=== PATIENT | male | born 1940 | race African-American/Black ===

== ENCOUNTER 2016-11-17 10:20 | Outpatient (CLI) ==
[2015-01-10 17:02] VITALS: BMI 29.6
== END 2016-11-17 10:21 | disposition home or self-care (01) ==
LOC: LAB 10:20
PROVIDERS: ATTEND Internal Medicine
DX: S41.001A Unspecified open wound of right shoulder, initial encounter (principal)
CPT/HCPCS: 87070

== ENCOUNTER 2016-11-19 11:55 | Outpatient (CLI) ==
[2015-01-10 17:02] VITALS: BMI 29.6
== END 2016-11-19 11:56 | disposition home or self-care (01) ==
LOC: LAB 11:55
PROVIDERS: ATTEND General Practice
DX: L02.91 Cutaneous abscess, unspecified (principal)
CPT/HCPCS: 87070

== ENCOUNTER 2017-07-13 07:57 | Outpatient (CLI) ==
[2015-01-10 17:02] VITALS: BMI 29.6
--- NOTE | 2017-07-13 08:43 | CT ---
EXAM: CT chest without contrast HISTORY: Chest wall pain COMPARISON: Chest x-ray 05/17/2014 and multiple priors TECHNIQUE: Serial axial images of the chest were obtained from the lung apices to the upper abdomen without contrast. These were viewed in multiple planes. FINDINGS: The thyroid is normal. The visualized vessels are unremarkable without aneurysm or stenos is. The heart is normal in size without pericardial effusion. There are no pathologically enlarged mediastinal or hilar lymph nodes. Calcified subcarinal lymph node is present. There is no pneumothorax or pleural effusion. There is no consolidation, nodule or mass. The airways are patent. There is no abnormal ground-glass. The osseous structures are unremarkable with no rib abnormality or fracture. The soft tissues in the upper abdomen on this limited evaluation demonstrate a are large left renal lesion measuring 10.1 cm in diameter with Hounsfield units consistent with a cyst and a nonobstructing left renal calcificati on. Limited views of the upper abdomen demonstrate diverticulosis. IMPRESSION: 1. No acute cardiopulmonary process or osseous abnormality to account for patient's symptoms. 2. Large left renal cyst with associated nonobstructing calcification. 3. Diverticulosis without diverticulitis.
== END 2017-07-13 07:58 | disposition home or self-care (01) ==
LOC: RAD 07:57
PROVIDERS: ATTEND Internal Medicine
DX: R07.89 Other chest pain (principal)

== ENCOUNTER 2017-07-16 07:18 | Inpatient (IN) | payer OTHER ==
[2017-07-16 07:25] VITALS: BMI 29.0
[2017-07-16] MEDS ORDERED: SODIUM CHLORIDE 1,000 ML IV STA (07:37)
--- NOTE | 2017-07-16 09:26 | CT ---
EXAM: CT chest without contrast. HISTORY: Chest pain. Difficulty breathing. COMPARISON: 07/13/2017. TECHNIQUE: Multiple axial images of the chest were obtained without intravenous contrast. Images we re reformatted in the sagittal and coronal planes. FINDINGS: Heart size is normal. There is no pericardial effusion. Atherosclerotic calcifications p resent. Evaluation for lymphadenopathy is limited by lack of intravenous contrast. Nonenlarged medi astinal lymph nodes present. Calcified subcarinal lymph nodes are present. No consolidation, pleural effusion or pneumothorax detected. Limited images of the upper abdomen demonstrate a left nephrolithiasis and large left renal cyst as w ell as diverticulosis and hepatic steatosis. Degenerative changes present in the spine which Schmorl 's node formation in the lumbar spine. Since the prior study, there is no significant interval change. IMPRESSION: No acute cardiopulmonary process.
--- NOTE | 2017-07-16 09:41 | ED.PDOC ---
General ED Provider: Dr. PATIENCE PULIDO Chief Complaint: Chest Wall Injury/Pain Stated Complaint: chest pain Time Seen by Physician: 07:20 (seen with nelly on arrival CT CHEST FROM PRIOR EVALUARION EXAMINED ) Mode of Arrival: Wheelchair Information Source: Patient Exam Limitations: No limitations Primary Care Provider: MIGUEL GARAY Nursing and Triage Documentation Reviewed and Agree: Yes (NO RECENT TRAUMA) Reviewed sepsis parameters & appropriate labs ordered?: Yes System Inflammatory Response Syndrome: Not Applicable Sepsis Protocol: For patient's 13 years and over: Temp is 96.8 and below OR 101 and greater Pulse >90 BPM Resp >20/minute Acutely Altered Mental Status Are patient's symptoms suggestive of a new infection, such as: -Pneumonia -Skin, Soft Tissue -Endocarditis -UTI -Bone, Joint Infection -Implantable Device -Acute Abdominal Infection -Wound Infection -Meningitis -Blood Stream Catheter Infection -Unknown System Inflammatory Response Syndrome: Not Applicable Cardiovascular Complaint Exam - Chest Pain Complaint/Exam Onset: Gradual Duration: 1 WEEK Symptoms Are: Still present Timing: Constant Initial Severity: Moderate Current Severity: Mild Location: Reports: Midsternal Pain Radiates: Reports: None Character: Reports: Dull Aggravating: Reports: None Alleviating: Reports: None Associated Signs and Symptoms: Reports: Cough. Denies: Diaphoresis, Nausea, Vomiting, Fever, Palpitations, Hemoptysis, Back pain, Abdominal pain, Dizziness , Short of air, Calf pain, Calf swelling Related History: Reports: Similar episode Related Surgical History: Reports: None History of Healthcare-Acquired Pneumonia: Reports: No AMI/ACS Risk Factors: Reports: Hypertension TAD Risk Factors: Reports: Hypertension Pulmonary Embolism Risk Factors: Reports: None Prior Care for this Complaint: No Recent Stress Test: No Recent Echo/LV Function: No JVD Present: No Subcutaneous Emphysema Present: No Diminshed Breath Sounds: No Reproducible Chest Wall Pain: No Bilateral Pulses Present: No Unequal Pulses Noted: No If Risk Factors for AMI/ACS Consider: EKG, Cardiac Enzymes Differential Diagnoses: ACS, Stable Angina, Unstable Angina, GI Diseasae, Lower Resp. Infection Quality Indicators For Acute PR or Cardiac Chest Pain: EKG in 10min. Review of Systems - Review Of Systems Constitutional: Reports: No symptoms Eyes: Reports: No symptoms Ears, Nose, Mouth, Throat: Reports: No symptoms Respiratory: Reports: No symptoms Cardiac: Reports: Chest pain GI: Reports: No symptoms : Reports: No symptoms Musculoskeletal: Reports: No symptoms Skin: Reports: No symptoms Neurological: Reports: No symptoms Endocrine: Reports: No symptoms Hematologic/Lymphatic: Reports: No symptoms All Other Systems: Reviewed and Negative Past Medical History - Past Medical History Previously Healthy: Yes Endocrine: Reports: Dyslipidemia Cardiovascular: Reports: Hypertension Respiratory: Reports: None Hematological: Reports: None Gastrointestinal: Reports: None, Diverticulitis Genitourinary: Reports: None Neuro/Psych: Reports: None Musculoskeletal: Reports: None Cancer: Reports: None - Surgical History General Surgical History: Reports: Cholecystectomy - Family History Family History: Reports: Unknown - Social History Smoking Status: Never smoker Hx Substance Use: No Alcohol Screening: None Physical Exam - Physical Exam Appearance: Well-appearing, No pain distress, Well-nourished Eyes: SHAILESH, EOMI, Conjunctiva clear ENT: Ears normal, Nose normal, Oropharynx normal Respiratory: Airway patent, Breath sounds clear, Breath sounds equal, Respirations nonlabored Cardiovascular: RRR, Pulses normal, No rub, No murmur GI/: Soft, Nontender, No masses, Bowel sounds normal, No Organomegaly Musculoskeletal: Normal strength, ROM intact, No edema, No calf tenderness Skin: Warm, Dry, Normal color Neurological: Sensation intact, Motor intact, Reflexes intact, Cranial nerves intact, Alert, Oriented Psychiatric: Affect appropriate, Mood appropriate Re-Evaluation - Re-Evaluation Time of Re-Evaluation: 09:38 (seen with nelly labs/EKG discussed ) Status: Unchanged Vital Signs Stable: Yes Pain Level: 3 Appearance: NAD Lungs: Clear Skin: Warm and Dry Neuro: Alert and Oriented X3 CV: RRR Physician Notification - Case Discussed Physician Notified: PMD Time of Notification: 10:00 (ALL DATA DISCUSSED ADVISED ADMISSION ) Admit To: Inpatient Critical Care Note - Critical Care Note Total Time (mins): 0 Course - Course Hematology/Chemistry: 07/16/17 07:36 07/16/17 07:55 Orders, Labs, Meds: Lab Review 07/16/17 07/16/17 07/16/17 07:36 07:55 07:55 WBC 7.64 RBC 4.60 L Hgb 14.2 Hct 39.6 L MCV 86.1 MCH 30.9 MCHC 35.9 H RDW Coeff of Bossman 12.9 Plt Count 182 Immature Gran % (Auto) 0.3 Neut % (Auto) 44.2 Lymph % (Auto) 46.9 Banks % (Auto) 7.6 Eos % (Auto) 0.9 Baso % (Auto) 0.1 Immature Gran # (Auto) 0.0 Neut # (Auto) 3.4 Lymph # (Auto) 3.6 H Banks # (Auto) 0.6 Eos # (Auto) 0.1 Baso # (Auto) 0.0 PT 10.3 INR 1.01 APTT 23.2 L Puncture Site O2 Saturation ABG pH ABG pCO2 ABG pO2 ABG HCO3 ABG Total CO2 ABG Base Excess Diaz Test FiO2 % Sodium 143 Potassium 3.2 L Chloride 108 H Carbon Dioxide 21 L Anion Gap 17.2 BUN 21 H Creatinine 1.58 H Estimated GFR (MDRD) 52.00 BUN/Creatinine Ratio 13.29 Glucose 91 Calcium 9.1 Total Bilirubin 0.8 AST 22 ALT 30 Alkaline Phosphatase 72 Total Creatine Kinase 95 Troponin I 0.0190 Total Protein 7.3 Albumin 3.9 Globulin 3.4 Albumin/Globulin Ratio 1.15 Procalcitonin Urine Color Urine Clarity Urine pH Ur Specific Perry Urine Protein Urine Glucose (UA) Urine Ketones Urine Blood Urine Nitrite Urine Bilirubin Urine Urobilinogen Ur Leukocyte Esterase Urine Microscopic WBC Ur Squamous Epith Cells Influ A Molecular Assay Influ B Molecular Assay 07/16/17 07/16/17 07/16/17 07:55 08:00 08:15 WBC RBC Hgb Hct MCV MCH MCHC RDW Coeff of Bossman Plt Count Immature Gran % (Auto) Neut % (Auto) Lymph % (Auto) Banks % (Auto) Eos % (Auto) Baso % (Auto) Immature Gran # (Auto) Neut # (Auto) Lymph # (Auto) Banks # (Auto) Eos # (Auto) Baso # (Auto) PT INR APTT Puncture Site R rad O2 Saturation 97.0 ABG pH 7.490 H ABG pCO2 29.3 L ABG pO2 82.0 L ABG HCO3 22.3 ABG Total CO2 23 ABG Base Excess -1 Diaz Test + FiO2 % 21.0 Sodium Potassium Chloride Carbon Dioxide Anion Gap BUN Creatinine Estimated GFR (MDRD) BUN/Creatinine Ratio Glucose Calcium Total Bilirubin AST ALT Alkaline Phosphatase Total Creatine Kinase Troponin I Total Protein Albumin Globulin Albumin/Globulin Ratio Procalcitonin 0.07 Urine Color Urine Clarity Urine pH Ur Specific Perry Urine Protein Urine Glucose (UA) Urine Ketones Urine Blood Urine Nitrite Urine Bilirubin Urine Urobilinogen Ur Leukocyte Esterase Urine Microscopic WBC Ur Squamous Epith Cells Influ A Molecular Assay Negative by naat Influ B Molecular Assay Negative by naat 07/16/17 08:50 WBC RBC Hgb Hct MCV MCH MCHC RDW Coeff of Boss[place] Plt Count Immature Gran % (Auto) Neut % (Auto) Lymph % (Auto) Banks % (Auto) Eos % (Auto) Baso % (Auto) Immature Gran # (Auto) Neut # (Auto) Lymph # (Auto) Banks # (Auto) Eos # (Auto) Baso # (Auto) PT INR APTT Puncture Site O2 Saturation ABG pH ABG pCO2 ABG pO2 ABG HCO3 ABG Total CO2 ABG Base Excess Diaz Test FiO2 % Sodium Potassium Chloride Carbon Dioxide Anion Gap BUN Creatinine Estimated GFR (MDRD) BUN/Creatinine Ratio Glucose Calcium Total Bilirubin AST ALT Alkaline Phosphatase Total Creatine Kinase Troponin I Total Protein Albumin Globulin Albumin/Globulin Ratio Procalcitonin Urine Color Yellow Urine Clarity Clear Urine pH 6.0 Ur Specific Perry 1.015 Urine Protein 1+ Urine Glucose (UA) Negative Urine Ketones Negative Urine Blood Negative Urine Nitrite Negative Urine Bilirubin Negative Urine Urobilinogen 0.2 Ur Leukocyte Esterase Negative Urine Microscopic WBC 0-2 Ur Squamous Epith Cells 0-2 Influ A Molecular Assay Influ B Molecular Assay Orders Category Date Time Status ABG DRAW REQUEST Stat CARDIO 07/16/17 07:41 Completed EKG-(ED ONLY) Stat CARDIO 07/16/17 07:36 Completed EKG-(ED ONLY) Stat CARDIO 07/16/17 09:37 Ordered NPO REMINDER: IMAGING ONCE CARE 07/16/17 07:36 Completed ED IV/MEDIPORT/POWERPORT .ONCE EMERGENCY 07/16/17 07:37 Active ABG Stat LAB 07/16/17 08:00 Completed BLOOD CULTURE (ED ONLY) Stat LAB 07/16/17 07:55 Received CBC W/ AUTO DIFF Stat LAB 07/16/17 07:36 Completed COMPREHENSIVE METABOLIC PANEL Stat LAB 07/16/17 07:55 Completed CREATINE KINASE Stat LAB 07/16/17 07:55 Completed FLU A/B MOLECULAR Stat LAB 07/16/17 08:15 Completed MOLECULAR GROUP A STREP Stat LAB 07/16/17 08:15 Completed PARTIAL THROMBOPLASTIN TIME Stat LAB 07/16/17 07:55 Completed PROCALCITONIN Stat LAB 07/16/17 07:55 Completed PT WITH INR Stat LAB 07/16/17 07:55 Completed TROPONIN I Stat LAB 07/16/17 07:55 Completed URINALYSIS C & S IF INDICATED Stat LAB 07/16/17 08:50 Completed 0.9 % Sodium Chloride [Saline Flush] MEDS 07/16/17 07:37 Active 1 syr IVF PRN PRN Sodium Chloride 0.9% [Sodium Chloride] 1,000 ml MEDS 07/16/17 07:37 Active IV 100 mls/hr CT CHEST W/O CONTRAST Stat RADS 07/16/17 07:39 Completed Medications Generic Name Dose Route Start Last Admin Trade Name Freq PRN Reason Stop Dose Admin Sodium Chloride 1,000 mls @ 100 mls/hr 07/16/17 07:37 Sodium Chloride IV 07/16/17 17:36 .Q10H STA Sodium Chloride 1 syr 07/16/17 07:37 Saline Flush IVF PRN PRN To flush IV Vital Signs: Temp Pulse Resp BP Pulse Ox 07/16/17 07:19 97.1 F L 80 20 127/85 98 MADDISON Risk Score MADDISON Risk Score: Risk Score Odds of by 30D 0 0.1 (0.1-0.2) 1 0.3 (0.2-0.3) 2 0.4 (0.3-0.5) 3 0.7 (0.6-0.9) 4 1.2 (1.0-1.5) 5 2.2 (1.9-2.6) 6 3.0 (2.5-3.6) 7 4.8 (3.8-6.1) Departure - Departure Time of Disposition: 09:39 (NO ACUTE EVENT WHILE AT E/D) Disposition: ADMITTED INPATIENT Discharge Problem: Chest pain Qualifiers: Chest pain type: unspecified Qualified Code(s): R07.9 - Chest pain, unspecified Instructions: Chest Pain (DC) Condition: Good Pt referred to PMD for follow-up: Yes IPMP verified?: No Additional Instructions: Please call your Family Physician as soon as possible to schedule a follow-up appointment. Allergies/Adverse Reactions: Allergies Iodinated Contrast- Oral and IV Dye [Iodinated Contrast Media - IV Dye] Adverse Reaction (Verified 07/16/17 07:24) Home Medications: Ambulatory Orders Amlodipine Besylate [Norvasc] 5 mg PO BID 11/27/12 Albuterol Sulfate [Proventil Hfa] 6.7 gm IH Q6HR PRN 05/17/14 Rosuvastatin Calcium [Crestor] 10 mg PO BEDTIME 01/10/15 Metformin HCl 500 mg PO BID 11/17/16 Disposition Discussed With: Patient
[2017-07-16] MEDS ORDERED: PROAIR HFA IH PRN (09:46)
[2017-07-16] MEDS ORDERED: MORPHINE 2 MG/ML SYRINGE IVP STA (10:22)
[2017-07-16] MEDS ORDERED: NORVASC PO STA (11:36)
[2017-07-16] MEDS ORDERED: GLUCOPHAGE PO ONE (11:36)
[2017-07-16] MEDS ORDERED: DECADRON 4 MG/ML SDV IM STA (11:40)
[2017-07-16] MEDS: K-DUR PO SCH ×2 (12:04→16:45)
[2017-07-16] MEDS: TORADOL IVP SCH ×2 (13:57→21:24)
[2017-07-16] MEDS: GLUCOPHAGE PO SCH (16:44)
[2017-07-16] MEDS ORDERED: GLUCOPHAGE PO SCH (17:30)
[2017-07-16] MEDS ORDERED: SODIUM CHLORIDE 1,000 ML IV SCH (19:00)
[2017-07-16] MEDS: NORVASC PO SCH (20:11)
[2017-07-16] MEDS: CRESTOR PO SCH (20:11)
[2017-07-17] MEDS: TORADOL IVP SCH ×3 (04:25→22:45)
[2017-07-17] MEDS: GLUCOPHAGE PO SCH ×2 (08:14→17:26)
[2017-07-17] MEDS: NORVASC PO SCH ×2 (09:15→22:06)
[2017-07-17] MEDS: K-DUR PO SCH ×2 (09:16→17:25)
--- NOTE | 2017-07-17 13:48 | STRESSMOD ---
Ordering Physician: MIGUEL GARAY Date of Test: 07/17/2017 Medical History: CHEST PAIN, HYPERTENSION Current Medications: CRESTOR, METFORMIN, NORVASC, PROVENTIL HFA, TORADOL, K-DUR Physical Findings: S1, S2, NO S3, NO MURMUR Resting EKG: SINUS RHYTHM, LEFT VENTRICULAR HYPERTROPHY Target Heart Rate: 120 Max Heart Rate: 142 S-T SEGMENT STAGE MPH/GRADE HEART RATE BPM BLOOD PRESSURE mmhg RHYTHM 0 +/- ELEVATION DEPRESSION SYMPTOMS,COMMENTS At Rest 70 152/96 SR X NONE 1 1.7/0% 102 164/106 SR X NONE 2 1.7/5% 156/106 SR 3 1.7/10% 4 2.5/12% 5 3.4/14% Immediately after 120 132/94 SR X FATIGUE Total Time: 6:33 Maximum Heart Rate Reached: 120 Reason for Termination: FATIGUE 4 Minutes Post Exercise: HR: 80BPM BP: 132/94 SR +/- NONE ____ INTERPRETATION: 98% OXYGEN SATURATION WITH EXERCISE ON ROOM AIR 1. TEST NEGATIVE FOR ISCHEMIC ST-T WAVE CHANGES 2. FEW PVC'S AT REST- LESS FREQUENT WITH EXERCISE 3. HYPERTENSION AT REST AND WITH EXERCISE 4. NO CHEST PAIN OR CHEST DISCOMFORT 5. NORMAL LEFT VENTRICULAR CONTRACTILITY RESTING AND WITH EXERCISE MTDD
--- NOTE | 2017-07-17 14:26 | ECHOSTRESS ---
Date of Exam: 07/17/2017 Ordering Physician: MIGUEL GARAY Reason for Echo: CHEST PAIN, STRESS TEST-NO ISCHEMIA M-Mode Normal Adult Results LV Dimensions Normal Adult Results AoV Opening excursions >1.6 LVEDD-base- 3.5-5.8 Ao root dimensions 2.0-3.7 LVESD-base- 3.1-4.6 L. Atrium dimensions 1.9-3.8 Post. Wall thickness 0.8-1.1 IV septum (thickness) 0.7-1.2 Post. Wall excursion 0.72-1.3 Septal motion Systolic motion R. Ventricular cavity 1.5-2.0 LVEF 60% Paradoxical septal wall motion 2-D: NORMAL LEFT VENTRICULAR CONTRACTILITY-RESTING AND POST EXERCISE M-MODE: MV: AV: TV: PV: CHAMBER SIZE: WALL MOTION: NORMAL LEFT VENTRICULAR CONTRACTILITY-RESTING AND POST EXERCISE PERICARDIUM: INTERPRETATION: 1. NORMAL LEFT VENTRICULAR CONTRACTILITY-RESTING AND POST EXERCISE MTDD
[2017-07-17] MEDS: CRESTOR PO SCH (22:06)
[2017-07-18 05:14] VITALS: BP 142/83; TEMP 98.3
[2017-07-18] MEDS: TORADOL IVP SCH (05:57)
[2017-07-18] MEDS: K-DUR PO SCH (08:59)
[2017-07-18] MEDS: NORVASC PO SCH (08:59)
[2017-07-18] MEDS: GLUCOPHAGE PO SCH (09:00)
--- NOTE | 2017-07-20 13:35 | ECHO2D ---
Date of Exam: 07/17/17 Ordering Physician: DR. MIGUEL GARAY Room #: [id number] Reason for Echo: CHEST PAIN M-Mode Normal Adult Results LV Dimensions Normal Adult Results AoV Opening excursions >1.6 >1.6 LVEDD-base- 3.5-5.8 5.6 Ao root dimensions 2.0-3.7 3.8 LVESD-base- 3.1-4.6 L. Atrium dimensions 1.9-3.8 4.0 Post. Wall thickness 0.8-1.1 1.2 IV septum (thickness) 0.7-1.2 1.1 Post. Wall excursion 0.72-1.3 NORMAL Septal motion NORMAL Systolic motion R. Ventricular cavity 1.5-2.0 NORMAL LVEF 60% 61% Paradoxical septal wall motion NORMAL 2-D : NORMAL VALVES, BORDERLINE LEFT ATRIAL AND LEFT VENTRICLE CAVITIES, NO EFFUSION, NO THROMBUS M-MODE: MV: E WAVE GREATER THAN A WAVE AV: NORMAL TV: NORMAL PV: NORMAL CHAMBER SIZE: ENLARGED LEFT ATRIAL CAVITY WALL MOTION: NORMAL PERICARDIUM: NORMAL INTERPRETATION: 1. DIASTOLIC DYSFUNCTION 2. LEFT VENTRICULAR HYPERTROPHY BORDERLINE 3. BORDERLINE LEFT ATRIAL AND LEFT VENTRICLE CAVITIES 4. NORMAL LEFT VENTRICULAR CONTRACTILITY--EJECTION FRACTION 60% MTDD
--- NOTE | 2017-07-21 13:52 | DS ---
DATE OF SERVICE: 07/18/17 FINAL DIAGNOSIS: 1. CHEST PAIN, NONCARDIAC 2. HYPERTENSION 3. DYSLIPIDEMIA 4. GENERALIZED ANXIETY DISORDER 5. CHRONIC KIDNEY DISEASE 6. DYSLIPIDEMIA 7. DIABETES MELLITUS DISCHARGE INSTRUCTIONS: Followup appointment with Dr. Blackwell on 07/24/17 at 11:[address] Blackwell also wants to see you on Thursday or Thursday when you bring your in for her followup appointment. Return to ER if any further issues. MEDICATIONS AT DISCHARGE: Amlodipine 5 mg twice a day Proventil Hfa two puffs four times a day as needed Rosuvastatin 10 mg p.o. daily Metformin 500 mg twice a day Baby aspirin one a day NEW PRESCRIPTIONS: None DIET INSTRUCTIONS: Heart Healthy ACTIVITY: As tolerated. SMOKING: Never smoked DISEASE SPECIFIC EDUCATION: Diagnoses Followup appointment Medications Counseled about stress reduction Diet HOSPITAL COURSE: 76-year-old black male hospitalized with chest pain. The patient's chest pain seems to be noncardiac but has multiple risk factors. The patient was worked up with echo which showed LVH, normal LV contractility. Stress echo was negative for ischemia. The patient was up and about. He has a lot of anxiety related to family problems. Daughter has moved in with him and the son, who lives in [place] , has a lot of other family issues along with his who is now in the hospital, has multiple medical problems. The patient was counseled about it but declined to take any antidepressant or antianxiety medication. He is condition is stable. At the time of discharge, he has decided to deal with it by himself and his ideas are normal. His thought process is normal. No suicidal or homicidal tendency. CONDITION AT TIME OF DISCHARGE: Stable. LAB TESTS: Hemoglobin 13.3, hematocrit 38, WBC 7,000, normal differential, creatinine 1.3, BUN 21, potassium 4, GFR 64 cc/min. TIME SPENT: More than 60 minutes. BARTOLOMED
--- NOTE | 2017-07-21 13:53 | PN ---
CODING FOR BILLNIG 07/16/17 LEVEL 5 07/17/17 INTERMEDIATE 07/18/17 DISCHARGE MTDD
--- NOTE | 2017-07-27 12:57 | HP ---
DATE OF SERVICE: 07/16/17 REASON FOR HOSPITALIZATION: Chest pain. HISTORY OF PRESENT ILLNESS: 76-year-old black male came to the emergency room with chest pain. According to him, he had sustained some pulling of the muscle by the chest while trying to pull his while she was sick. Chest pain is substernal, right-sided. He says it feels like having bubbles or balls like golf balls moving, gas type of feeling so goes to the back. Mostly it is confined to the right side of the chest, more than the left side. No associated sweating or radiation of the pain to any other part but had mild shortness of breath lately. PAST MEDICAL HISTORY: Hypertension Diabetes mellitus Dyslipidemia Chronic kidney disease PAST SURGICAL HISTORY: Cholecystectomy Laser surgery, left eye REVIEW OF SYSTEMS: CONSTITUTIONAL: Fatigue; no weakness. No night sweats. No malaise, lethargy. No fever or chills. HEENT: Eyes: No visual changes. No eye pain. No eye discharge. ENT: No runny nose. No epistaxis. No sinus pain. No sore throat. No odynophagia. No ear pain. No congestion. RESPIRATORY: No cough, no congestion. No hemoptysis. No shortness of breath. No PND, no orthopnea. CARDIOVASCULAR: No angina symptoms. No CHF symptoms. Chest pain mostly seems like superficial chest wall pain, air bubbles on the right side of the chest and through to the back. Also stated sweating, maybe mild shortness of breath lately. GASTROINTESTINAL: No abdominal pain. No nausea or vomiting. No diarrhea or constipation. No hematemesis. No hematochezia. GENITOURINARY: No urgency. No frequency. No dysuria. No hematuria. No obstructive symptoms. No discharge. No pain. No significant abnormal bleeding. MUSCULOSKELETAL: No musculoskeletal pain. No joint swelling. No arthritis. NEUROLOGICAL: No headache. No neck pain. No syncope. No seizures. No dizziness. PSYCHIATRIC: Not anxious. No depression. No suicidal thoughts. No homicidal thoughts. SKIN: No rash. No lesions. No wounds. ENDOCRINE: No unexplained weight loss. No weight gain. HEMATOLOGIC/LYMPHATIC: No anemia. No purpura. No petechiae. No prolonged or excessive bleeding. No palpable lymph nodes. PERSONAL/FAMILY/SOCIAL HISTORY: The patient is , lives with the . Nonsmoker. No alcohol abuse. He does all activities of daily living. MEDICATIONS: Amlodipine 5 mg p.o. twice a day Albuterol/Proventil Hfa two puffs three times a day Rosuvastatin 10 mg p.o. daily Metformin 500 mg p.o. twice a day ALLERGIES: IODINATED CONTRAST DYE PHYSICAL EXAMINATION: GENERAL: The patient is oriented to time, place and person. VITAL SIGNS: Temperature 98.2, pulse 70, respiratory rate 16, BP 128/76, pulse ox 98%. HEENT: Head normocephalic, atraumatic. Eyes: Extraocular muscles are intact. Pupils are equal, round and reactive to light and accommodation. Ears: No lesions. Nose appeared normal. Throat: No exudate or erythema. NECK: Supple. No JVD, no carotid bruit. No lymphadenopathy or thyromegaly. LUNGS: Clear to auscultation. Percussion note normal. Chest symmetrical. HEART: S1, S2, no S3. No murmurs. No cyanosis or clubbing. No ascites. Pulses: Dorsalis pedis and posterior tibial pulses +1 to +2 both sides. ABDOMEN: Soft. Nontender. Bowel sounds active. No CVA tenderness. No mass felt. EXTREMITIES: No edema. Full range of motion of all extremities, equal. NEUROLOGIC: No focal deficit. Cranial nerves II through XII are grossly intact. No headache, no double vision or headache. SKIN: Not dry. Intact. Turgor - normal. LYMPHATIC: No palpable lymph nodes/no lymphedema. MUSCULOSKELETAL: Normal joints with no swelling. Muscle tone is normal. LABS: Hemoglobin 14.2, hematocrit 39, WBC 7,600, normal differential. Creatinine 1.5, BUN 21, potassium 3.2. 1+ protein. Influenza A and B negative. Arterial blood gases p02 82, pc02 29, pH 7.49 with 97% saturation on room air. Potassium 3.2. Hemoglobin 14, hematocrit 39, WBC 7,600, normal differential. ASSESSMENT: 1. CHEST PAIN, SEEMS TO BE NONCARDIAC, MULTIPLE RISK FACTORS FOR CORONARY ARTERY DISEASE LIKE FAMILY HISTORY OF HEART DISEASE. THE FATHER OF [place]. 2. DYSLIPIDEMIA 3. HYPERTENSION 4. DIABETES MELLITUS 5. BMI 29 6. SEDENTARY LIFESTYLE 7. CHRONIC KIDNEY DISEASE PLAN: 1. Continue all home medications 2. Telemetry 3. Echo to be done in the morning 4. Stress echo following echocardiogram 5. Cardiac markers so far are negative. EKG - sinus rhythm, no acute changes, LVH noted. CONDITION: Stable TIME SPENT: More than 70 minutes. MTDD
--- NOTE | 2017-07-27 13:08 | PN ---
DATE OF SERVICE: 07/17/17 SUBJECTIVE: 76-year-old black male hospitalized with chest pain. REVIEW OF SYSTEMS: CONSTITUTIONAL: No night sweats. No fatigue, malaise, lethargy. No fever or chills. HEENT: Eyes: No visual changes. No eye pain. No eye discharge. ENT: No runny nose. No epistaxis. No sinus pain. No sore throat. No odynophagia. No congestion. RESPIRATORY: No cough, no congestion. No hemoptysis. No shortness of breath. CARDIOVASCULAR: No angina symptoms. No CHF symptoms. Mild chest pain. No palpitations. No orthopnea. GASTROINTESTINAL: No abdominal pain. No nausea or vomiting. No diarrhea or constipation. No hematemesis. No hematochezia. GENITOURINARY: No urgency. No frequency. No dysuria. No hematuria. No obstructive symptoms. No discharge. No pain. No significant abnormal bleeding. MUSCULOSKELETAL: No musculoskeletal pain; no joint swelling. NEUROLOGICAL: No headache. No neck pain. No syncope. No seizures. No dizziness. PSYCHIATRIC: Not anxious. No depression. No suicidal thoughts. No homicidal thoughts. SKIN: No rash. No lesions. No wounds. ENDOCRINE: No unexplained weight loss. No weight gain. HEMATOLOGIC/LYMPHATIC: No anemia. No purpura. No petechiae. No prolonged or excessive bleeding. No palpable lymph nodes. PHYSICAL EXAMINATION: GENERAL: The patient is oriented to time, place and person. VITAL SIGNS: Temperature 98.2, pulse 70, respiratory rate 16, BP 142/83, pulse ox 97%. HEENT: Head normocephalic, atraumatic. Eyes: Extraocular muscles are intact. Pupils are equal, round and reactive to light and accommodation. Ears: No lesions. Nose appeared normal. Throat: No exudate or erythema. NECK: Supple. No JVD, no carotid bruit. No lymphadenopathy or thyromegaly. LUNGS: Decreased breath sounds but clear to auscultation. Percussion note normal. Chest symmetrical. HEART: S1, S2, no S3. No murmurs. No cyanosis or clubbing. No ascites. Pulses: Dorsalis pedis and posterior tibial pulses +1 to +2 both sides. ABDOMEN: Soft. Nontender. Bowel sounds active. No CVA tenderness. No mass felt. EXTREMITIES: No edema. Full range of motion of all extremities, equal. NEUROLOGIC: No focal deficit. Cranial nerves II through XII are grossly intact. No headache, no double vision or headache. SKIN: Not dry. Intact. Turgor - normal. LYMPHATIC: No palpable lymph nodes/no lymphedema. MUSCULOSKELETAL: Normal joints with no swelling. Muscle tone is normal. ASSESSMENT: 1. CHEST PAINS BY HISTORY DOESN'T SEEM TO BE CARDIAC 2. HYPERTENSION 3. DYSLIPIDEMIA 4. GENERALIZED ANXIETY DISORDER 5. CHRONIC KIDNEY DISEASE The patient underwent echo which showed LVH, enlarged LA cavity otherwise normal LV contractility. On stress echo, the patient had good exercise tolerance , reached his targeted heart rate with no ST-T wave change. Stress echo was negative with normal LV contractility at rest and post exercise. All the reports discussed with the patient. PLAN: 1. For anxiety the patient was advised regular exercise schedule; counseling done. TIME SPENT: More than 30 minutes. Plan and coordination of the patient's care discussed in the presence of nurse. DONNA
--- NOTE | 2017-07-27 13:39 | PN ---
DATE OF SERVICE: 07/18/17 SUBJECTIVE: 76-year-old white male hospitalized with chest pain. The patient's chest pain so far is much less, right sided, not going to the back like it did. The patient is stabilizing with musculoskeletal type of pain. REVIEW OF SYSTEMS: CONSTITUTIONAL: No night sweats. No fatigue, malaise, lethargy. No fever or chills. HEENT: Eyes: No visual changes. No eye pain. No eye discharge. ENT: No runny nose. No epistaxis. No sinus pain. No sore throat. No odynophagia. No congestion. RESPIRATORY: No cough, no congestion. No hemoptysis. No shortness of breath. CARDIOVASCULAR: No angina symptoms. No CHF symptoms. Right-sided chest pain, musculoskeletal in type. No palpitations. No orthopnea. GASTROINTESTINAL: No abdominal pain. No nausea or vomiting. No diarrhea or constipation. No hematemesis. No hematochezia. GENITOURINARY: No urgency. No frequency. No dysuria. No hematuria. No obstructive symptoms. No discharge. No pain. No significant abnormal bleeding. MUSCULOSKELETAL: Right-sided chest pain, musculoskeletal in type. NEUROLOGICAL: No headache. No neck pain. No syncope. No seizures. No dizziness. PSYCHIATRIC: Not anxious. No depression. No suicidal thoughts. No homicidal thoughts. SKIN: No rash. No lesions. No wounds. ENDOCRINE: No unexplained weight loss. No weight gain. HEMATOLOGIC/LYMPHATIC: No anemia. No purpura. No petechiae. No prolonged or excessive bleeding. No palpable lymph nodes. PHYSICAL EXAMINATION: GENERAL: The patient is oriented to time, place and person. HEENT: Head normocephalic, atraumatic. Eyes: Extraocular muscles are intact. Pupils are equal, round and reactive to light and accommodation. Ears: No lesions. Nose appeared normal. Throat: No exudate or erythema. NECK: Supple. No JVD, no carotid bruit. No lymphadenopathy or thyromegaly. LUNGS: Clear to auscultation. Percussion note normal. Chest symmetrical. HEART: S1, S2, no S3. No murmurs. No cyanosis or clubbing. No ascites. Pulses: Dorsalis pedis and posterior tibial pulses +1 to +2 both sides. ABDOMEN: Soft. Nontender. Bowel sounds active. No CVA tenderness. No mass felt. EXTREMITIES: No edema. Full range of motion of all extremities, equal. NEUROLOGIC: No focal deficit. Cranial nerves II through XII are grossly intact. No headache, no double vision or headache. SKIN: Not dry. Intact. Turgor - normal. LYMPHATIC: No palpable lymph nodes/no lymphedema. MUSCULOSKELETAL: Normal joints with no swelling. Muscle tone is normal. ASSESSMENT: 1. CHEST PAIN SEEMS TO BE NONCARDIAC. Telemetry sinus rhythm with no ST-T wave changes. Yesterday the patient's stress echo was negative. The patient is up and about. He is convinced that anxiety is the cause of his symptoms. CONDITION: Stable. TIME SPENT: More than 30 minutes. Plan and coordination of the patient's care discussed in the presence of nurse. DONNA
== END 2017-07-18 09:20 | disposition home or self-care (01) | DRG 313 ==
LOC: ED 07:18 → MEDSURG A 09:53
PROVIDERS: ADMIT Internal Medicine; ATTEND Internal Medicine
DX: R07.89 Other chest pain (principal); I10 Essential (primary) hypertension; E78.5 Hyperlipidemia, unspecified; E11.9 Type 2 diabetes mellitus without complications; N18.9 Chronic kidney disease, unspecified; F41.1 Generalized anxiety disorder; Z63.79 Other stressful life events affecting family and household; Z79.899 Other long term (current) drug therapy
CPT/HCPCS: 36415; 80053; 81001; 82550; 82803; 82962; 84145; 84484; 85025; 85610; 85730; 87040; 87502; 87651; 93005; 93010; 96374; 99284

== ENCOUNTER 2018-07-22 07:15 | Outpatient (CLI) ==
--- NOTE | 2018-07-22 08:52 | US ---
EXAM: Renal ultrasound HISTORY: Increased renal function with hypertension COMPARISON: Same day renal Doppler TECHNIQUE: Sonographic evaluation of the kidneys was performed with limited Doppler evaluation. FINDINGS: The right kidney measures 11.5 x 4.8 x 4.8 cm with renal cortical thickness of 1.0 cm. Th ere is normal echogenicity and color Doppler flow. There is an anechoic cyst inferiorly measuring 0. 5 by point a by 0.6 cm. There is no hydronephrosis with hyperechoic 0.6 nonobstructing renal stone The left kidney measures 9.9 x 5.3 x 4.4 cm with renal cortical thickness not clearly identified. Th ere is normal echogenicity and color Doppler flow. There is no hydronephrosis or visualized stone. There is a large cyst which mildly obscures evaluation of the kidney measuring 11.3 x 10.7 x 9.2 cm. There is an additional smaller inferior cyst measuring 2.4 x 1.7 x 1.7 cm. Limited evaluation of the urinary bladder is unremarkable. IMPRESSION: 1. The large left renal cysts which mildly limits evaluation of the left kidney. There is no left h ydronephrosis or visualized stone. 2. Nonobstructing right renal stone and inferior right renal cyst.
--- NOTE | 2018-07-22 08:57 | US ---
EXAM: Renal artery duplex HISTORY: Hypertension COMPARISON: Same day renal ultrasound and CT 12/10/2015 TECHNIQUE: Sonographic and Doppler evaluation of the kidneys and renal arteries were performed. FINDINGS: The aorta is normal in appearance with peak systolic velocity of 80 cm per second and diam eter of 1.7 cm. The IVC is patent. The right kidney measures 11.5 cm in length. Peak systolic velocities measure 50 cm/sec at the ostium, 50 cm/sec in the mid artery and 50 cm/sec i n the renal hilum. These are within normal limits. The renal artery/aortic ratio measures 1.6 at the ostium, 1.6 in the mid renal artery and 1.6 in the hilum. The arcuate artery demonstrates a peak systolic velocity of 20 cm/sec and resistive index of 0.73 whi ch are normal. The right renal vein is patent. The left kidney measures 9.9 cm in length. The very large left renal cyst obscures evaluation of the vasculature. The arcuate artery velocity i s identified at 10 centimeters per second with a resistive index of 0.38 although this is also limite d. IMPRESSION: 1. Evaluation of the left renal arteries was not able to be obtained due to a large dominant left re nal cyst. 2. Right renal velocities and resistive index is within normal limits.
== END 2018-07-22 07:16 | disposition home or self-care (01) ==
LOC: RAD 07:15
PROVIDERS: ATTEND Internal Medicine
DX: I10 Essential (primary) hypertension (principal); R94.4 Abnormal results of kidney function studies

== ENCOUNTER 2018-07-23 07:37 | Outpatient (CLI) | END 2018-07-23 07:38 | disposition home or self-care (01) | LOC: LAB 07:37 | PROVIDERS: ATTEND Internal Medicine | DX: R94.4 Abnormal results of kidney function studies (principal) | CPT/HCPCS: 84156 ==

== ENCOUNTER 2018-09-13 12:21 | Outpatient (CLI) ==
--- NOTE | 2018-09-13 13:52 | DI ---
Exam: Lumbar spine three-view. HISTORY: Back pain. Comparison: 08/20/2010. Findings: Three views of the lumbar spine demonstrate five [id number], lumbarized vertebrae wit h subtle levoscoliosis as before. These demonstrate no compression fracture or listhesis. There is multilevel moderate degenerative disc and facet arthropathy that appears greatest at L3-4. Surgical clips are in the right upper abdomen. Atherosclerotic plaque is seen. Impressions: Stable mild levoscoliosis. Multilevel moderate degenerative disc and facet arthropathy with no compression fracture or listhesis.
--- NOTE | 2018-09-13 13:53 | DI ---
EXAM: Two views of the thoracic spine. History: Thoracic back pain. Findings: No acute fracture or subluxation of the thoracic spine. Mild to moderate multilevel disc space narrowing with endplate sclerosis and osteophyte formation. Postsurgical changes of the cervic al spine Impression: 1. No acute osseous abnormality of the thoracic spine. 2. Mild to moderate degenerative disc disease
== END 2018-09-13 12:22 | disposition home or self-care (01) ==
LOC: RAD 12:21
PROVIDERS: ATTEND Internal Medicine
DX: M54.5 Low back pain (principal); M54.6 Pain in thoracic spine

== ENCOUNTER 2018-09-20 05:22 | Emergency (ER) | payer OTHER ==
[2018-09-20 05:33] VITALS: BP 163/71; TEMP 97.4
[2018-09-20] MEDS ORDERED: MORPHINE 2 MG/ML SYRINGE IM STA (05:53)
[2018-09-20] MEDS ORDERED: ZOFRAN 4 MG/2 ML IM STA (05:54)
[2018-09-20] MEDS ORDERED: NORFLEX IM STA (05:54)
--- NOTE | 2018-09-20 06:21 | ED.PDOC ---
General ED Provider: Dr. PAZ MCKINNEY-ER Chief Complaint: Back Pain Stated Complaint: my back has been hurtin Time Seen by Physician: 05:30 Mode of Arrival: Walk-In Information Source: Patient, Family Exam Limitations: No limitations Primary Care Provider: MIGUEL FIELDS Nursing and Triage Documentation Reviewed and Agree: Yes Does patient meet sepsis criteria?: No System Inflammatory Response Syndrome: Not Applicable Sepsis Protocol: For patient's 13 years and over: Temp is 96.8 and below OR 101 and greater Pulse >90 BPM Resp >20/minute Acutely Altered Mental Status Are patient's symptoms suggestive of a new infection, such as: -Pneumonia -Skin, Soft Tissue -Endocarditis -UTI -Bone, Joint Infection -Implantable Device -Acute Abdominal Infection -Wound Infection -Meningitis -Blood Stream Catheter Infection -Unknown Musculoskeletal Complaint Exam - Back Pain Complaint/Exam Mechanism of Injury: Reports: No known trauma Onset/Duration: several days Symptoms Are: Still present Timing: Constant Initial Severity: Mild Current Severity: Moderate Location: Reports: Diffuse Character: Reports: Dull, Aching, Spasmodic, Stiffness Aggravating: Reports: Movements, Lifting, Bending, Walking Alleviating: Reports: None Associated Signs and Symptoms: Denies: Swelling, Redness, Bruising, Fever, Weakness, Numbness, Tingling, Abdominal pain, Flank pain, Bladder incontinence, Bowel incontinence, Weight loss, Pain with weight bearing TAD Risk Factors: Reports: None AAA Risk Factors: Reports: None Cauda Equina Risk Factors: Reports: None Epidural Abcess Risk Factors: Reports: None Related Surgical History: Reports: None Focal Tenderness: Yes Paraspinal Muscle Tenderness: Yes Paraspinal Muscle Spasm: Yes Scoliosis: No Lordosis: No Kyphosis: No SLR Test: Right Negative, Left Negative Hip Motion Testing Pain: Right Negative, Left Negative Focal Weakness: Present: None Focal Sensory Loss: Present: None Gait: Present: Abnormal Differential Diagnoses: Arthritis, Fracture, Herniated Disk, Strain, Sprain Review of Systems - Review Of Systems Constitutional: Reports: No symptoms Eyes: Reports: No symptoms Ears, Nose, Mouth, Throat: Reports: No symptoms Respiratory: Reports: No symptoms Cardiac: Reports: No symptoms GI: Reports: No symptoms : Reports: No symptoms Musculoskeletal: Reports: Back pain Skin: Reports: No symptoms Neurological: Reports: No symptoms Endocrine: Reports: No symptoms Hematologic/Lymphatic: Reports: No symptoms All Other Systems: Reviewed and Negative Past Medical History - Past Medical History Previously Healthy: Yes Endocrine: Reports: Dyslipidemia Cardiovascular: Reports: Hypertension Respiratory: Reports: None Hematological: Reports: None Gastrointestinal: Reports: None, Diverticulitis Genitourinary: Reports: None Neuro/Psych: Reports: None Musculoskeletal: Reports: None Cancer: Reports: None - Surgical History General Surgical History: Reports: Cholecystectomy - Family History Family History: Reports: Unknown - Social History Smoking Status: Never smoker Hx Substance Use: No Alcohol Screening: None - Immunizations Tetanus Shot up to Date: Yes Physical Exam - Physical Exam Appearance: Well-appearing, No pain distress, Well-nourished Pain Distress: Moderate Eyes: SHAILESH, EOMI, Conjunctiva clear ENT: Ears normal, Nose normal, Oropharynx normal Neck: Supple Respiratory: Airway patent, Breath sounds clear, Breath sounds equal, Respirations nonlabored Cardiovascular: RRR, Pulses normal, No rub, No murmur GI/: Soft, Nontender, No masses, Bowel sounds normal, No Organomegaly Musculoskeletal: Limited ROM Skin: Warm, Dry, Normal color Neurological: Sensation intact, Motor intact, Reflexes intact, Cranial nerves intact, Alert, Oriented Psychiatric: Affect appropriate, Mood appropriate Interpretation - Radiology Interpretation Radiology Interpretation By: Radiologist Radiology Results: Positive Exam Interpreted: CT Scan Re-Evaluation - Re-Evaluation Time of Re-Evaluation: 06:44 Status: Improved Vital Signs Stable: Yes Pain Level: 1 Appearance: NAD Lungs: Clear Skin: Warm and Dry Neuro: Alert and Oriented X3 CV: RRR Critical Care Note - Critical Care Note Total Time (mins): 0 Course - Course Orders, Labs, Meds: Orders Category Date Time Status Morphine Sulfate [Morphine 2 mg/ml Syringe] MEDS 09/20/18 05:53 Discontinued 4 mg IM ONCE STA Ondansetron HCl/Pf [Zofran 4 mg/2 ml] MEDS 09/20/18 05:54 Discontinued 4 mg IM ONCE STA Orphenadrine Citrate [Norflex] MEDS 09/20/18 05:54 Discontinued 60 mg IM ONCE STA CT LUMBAR SPINE W/O CONTRAST Stat RADS 09/20/18 05:53 Completed Medications Discontinued Medications Generic Name Dose Route Start Last Admin Trade Name Freq PRN Reason Stop Dose Admin Morphine Sulfate 4 mg 09/20/18 05:53 09/20/18 06:16 Morphine 2 Mg/Ml Syringe IM 09/20/18 05:54 4 mg ONCE STA Administration Ondansetron HCl 4 mg 09/20/18 05:54 09/20/18 06:14 Zofran 4 Mg/2 Ml IM 09/20/18 05:55 4 mg ONCE STA Administration Orphenadrine Citrate 60 mg 09/20/18 05:54 09/20/18 06:17 Norflex IM 09/20/18 05:55 60 mg ONCE STA Administration Vital Signs: Temp Pulse Resp BP Pulse Ox 09/20/18 05:23 97.4 F L 55 L 18 163/71 H 98 Departure - Departure Time of Disposition: 06:44 Disposition: HOME SELF-CARE Discharge Problem: Backache Instructions: Acute Low Back Pain (ED) Condition: Good Pt referred to PMD for follow-up: Yes IPMP verified?: No Additional Instructions: norco 5mg q 4hrs prn pain #12--flexeril 5mg tid #21---f/u with dr fields this week Allergies/Adverse Reactions: Allergies Iodinated Contrast- Oral and IV Dye [Iodinated Contrast Media - IV Dye] Adverse Reaction (Verified 09/20/18 05:33) CONVULSIONS Home Medications: Ambulatory Orders Amlodipine Besylate [Norvasc] 5 mg PO BID 11/27/12 Albuterol Sulfate [Proventil Hfa] 6.7 gm IH Q6HR PRN 05/17/14 Rosuvastatin Calcium [Crestor] 10 mg PO BEDTIME 01/10/15 Butalb/Acetaminophen/Caffeine [Fioricet] 1 each PO BID PRN 09/20/18 Methylprednisolone [Medrol Dosepak] 4 mg PO DIRECTED 09/20/18 Tramadol HCl 50 mg PO BID PRN 09/20/18 Disposition Discussed With: Patient
--- NOTE | 2018-09-20 06:40 | CT ---
EXAM: CT lumbar spine without intravenous contrast 09/20/2018. Sagittal and coronal reformatted ace ges obtained HISTORY: Lower back pain COMPARISON: 09/13/2018, 12/10/2015 FINDINGS: There is chronic scoliotic curvature with convexity to the left. There is no evidence of acute fracture. Alignment is stable. There is multilevel severe degenerativ e disc disease. Degenerative disc disease is most severe at L2-L3 and L3-L4. At the level of L2-L3 there is near-complete loss of disc height with multiple Schmorl's nodes. Larg e defect at the inferior endplate of L2 is stable. Small defect of the superior endplate of L3 also appears stable. Broad-based post disc bulge flattens thecal sac. At the level of L3-L4 there is broad-based post disc bulge/osteophyte complex flattening the thecal s ac. There is triangulation of the spinal canal. Defect at the inferior endplate of L3 also most com patible Schmorl's node. This also appears stable. Multilevel chronic facet arthropathy. . IMPRESSION: 1. No acute osseous abnormality of the lumbar spine. 2. Chronic scoliotic curvature with convexity to the left 3. Multilevel severe degenerative disc disease. Degenerative findings within the lumbar spine appea r most severe at L2-L3 and L3-L4. 4. Multiple end plate defects appear stable. This is most compatible Schmorl's nodes. Additional d etails as above. If further characterization is clinically indicated then follow-up outpatient MRI c ould be considered
== END 2018-09-20 07:03 | disposition home or self-care (01) ==
LOC: ED 05:22
DX: M54.5 Low back pain (principal)
CPT/HCPCS: 96372; 99282

== ENCOUNTER 2019-01-14 13:00 | Outpatient (RCR) | payer OTHER ==
--- NOTE | 2018-12-28 09:59 | RS.OPPTEV2 ---
Date of Note: 12/27/18 Visit #: 1 Number of visits approved by Insurance: n/a Date of Evaluation: 12/27/18 Payer Source: MEDICARE Surgery Performed?: No Treatment Diagnosis: low back pain with radicular pain into RLE History of Condition/Mechanism of Injury:: Pain began approx 08/2018. No definite injury noted. Prior Level of Function.....Patient was independent with: ADL's, Self Care, Caregiving (assists his who has medical issues.), Ambulation/Mobility, Community Integration/Access Level of Function: pt independent with all ADL's with pain. Functional Limitations: Sleep, Sitting, Standing, Bending, Squatting, Ambulation , Community Access/Integration Current Subjective/complaints:: pt states that he is really unsure when pain began. States that it has been getting worse over the last month. pt reports that pain is interrupting sleep and limiting his activity. Reports any walking increases pain. Treatment Side (optional): Right *Precautions: n/a Medical History Medical History: Hypertension, Diabetes, Arthritis Surgical History: Cholecystectomy Smoking Status: Never smoker Diagnostic Testing/Imaging:: Lumbar CT from 09/20/18: chronic scoliotic curvature with convexity to L. multilevel severe DDD most severe L2-L3 and L3-L4. Hx Home Medications: cozaar, crestor, flomax, protonix, norvasc, jardiance, vit D2 Patient's Goals: Decrease low back pain. Pain Assessment - Pain Description Pain Location: Lumbar radiating into RLE. Pain Description: Tightness, Radiating, Aching Current Pain Intensity: 8/10 Functional Outcome Measure Oswestry LBP: 40 - G Codes & Severity Modifier G Codes & Modifier: n/a Source of G Code score: n/a Observation - Observation Inspection: tightness noted in B piriformis, hamstrings R worse than L. Leg length: RLE longer than LLE Posture: Forward Head, Rounded Shoulders, Increased Thoracic Kyphosis, Decreased Lumbar Lordosis Handedness: Right Gait - Gait Pattern Gait Comments: pt amb independently without AD with guarded posture due to pain General Range of Motion: BUE WFL's. BLE WFL's Muscle Strength: BUE 4+/5. LLE grossly 4+/5. RLE hip flex 4/5 with pain, knee flex/ext 4+/5, ankle DF/PF 4+/5 - ROM Lumbar Flexion: Hand reach to patellae Sidebending to Left: Reach to Lateral Joint Line Sidebending to Right: Reach to Lateral Joint Line Lumbar Spine ROM Limitations: Soft Tissue Tightness, Muscle Weakness, Pain Comments: pt with increased pain with lumbar ext and R lat side bending - Strength Trunk Extension: 3- Fair- Trunk Flexion: 3 Fair Trunk Lateral Flexion: 3 Fair - Special Tests [id number] Test: Negative Left, Negative Right SLR Test: Positive Right Seated Dural Stretch Test: Positive Right SI Joint Compression: Positive Palpation Palpation Findings: Tenderness, Trigger Point, Muscle Guarding Comments:: pt presents with tenderness to palpation R lumbar/sacral area with muscle guarding present with trigger point in area of R SI Sensation - Sensation Right Upper Extremity: Intact/Normal Left Upper Extremity: Intact/Normal Right Lower Extremity: Impaired (n/t and pain radiating into RLE through buttocks around groin and into thigh) Left Lower Extremity: Intact/Normal Balance - Sitting Balance Static Sitting Balance: Normal Dynamic Sitting Balance: Normal - Standing Balance Static Standing Balance: Good Dynamic Standing Balance: Good - Treatment Modality: Electrical Stim Unattended Parameters/Method Applied: IFC x 20 mins at 15ma Treatment Area: R lumbosacral area Patient Position: Left Sidelying - Heat/Cryotherapy Treatment: Cryotherapy Comments:: with estim Interventions - Exercise/Activities/Manual Therapy Exercises/Activities: pt received BLE hamstring and piriformis stretching as well as performed pelvic tilt, and muscle energy with RLE into ext, LLE into flex. Manual Therapy: n/a HOME EXERCISE PROGRAM: pt given written HEP including: pelvic tilt, resisted hip flex, hamstring stretch, piriformis stretch. - Charges Timed Code Treatment Minutes: 41 Total Treatment Time: 62 Procedures billed for this date of service:: eval med, estim CP EVALUATION COMPLEXITY LEVEL EVALUATION COMPLEXITY LEVEL: HISTORY: Medium, EXAM OF BODY SYSTEMS: Medium, CLINICAL PRESENTATION: Medium, CLINICAL DECISION MAKING: Medium Assessment Assessment: pt presents with low back pain radiating into RLE. pt also presents with symptoms consistent with SI dysfunction with leg length discrepancy R longer than L. pt with decreased lumbar ROM, decreased strength. pt also with muscle tightness in piriformis and hamstrings BLE. Feel pt would benefit from skilled PT for therex for stretching and strengthening as well as modalities/ possible traction to decrease pain. Patient Education: Home Exercise Program, Education of Plan of Care Rehab Potential: Good Short Term Goals Goal #1: pt independent with intial HEP Goal to be met by: 01/14/19 Goal #2: Decrease LBP < 7/10 with activity Goal to be met by: 01/14/19 Goal #3: Improve flexibility BLE hamstring/piriformis muscles. Goal to be met by: 01/14/19 Goal #4: Leg length equal Goal to be met by: 01/14/19 It Security Administrator Goals Goal #1: pt report no radicular pain into RLE Goal to be met by: 02/04/19 Goal #2: pt report able to perform normal daily activities w less pain Goal to be met by: 02/04/19 Goal #3: Oswestry score improved to < 25 Goal to be met by: 02/04/19 Plan - Treatment to be Provided Procedures: Therapeutic Exercises, Therapeutic Activity, Manual Therapy, Massage , Patient Education Modalities: Electrical Stimulation, Ultrasound/Phonophoresis, Cryotherapy, Hot Packs, Mechanical Traction - Treatment Plan Frequency: 2-3x a week Duration: 6 weeks Dates of [facility] Goals: 02/04/19 Expiration date of current Insurance Approval:: n/a - Treatment Code (1) Low back pain Code(s): M54.5 - LOW BACK PAIN Qualifiers: Chronicity: unspecified Back pain laterality: right Sciatica presence: with sciatica Sciatica laterality: sciatica of right side Qualified Code(s) : M54.41 - Lumbago with sciatica, right side (2) Radicular pain of right lower extremity Code(s): M54.10 - RADICULOPATHY, SITE UNSPECIFIED (3) Sacroiliac dysfunction Code(s): M53.3 - SACROCOCCYGEAL DISORDERS, NOT ELSEWHERE CLASSIFIED
--- NOTE | 2018-12-29 14:53 | RS.OPPTDN ---
Subjective Date of Note: 12/29/18 Visit #: 2 Number of visits approved by Insurance: na Date of Evaluation: 12/27/18 Payer Source: MEDICARE Treatment Diagnosis: low back pain with radicular pain into RLE Current Subjective/complaints:: Patient reports first treatment seems to have reduced his pain level. States he is working on HEP. States he would like to try heat with Estim when offered. States he enjoys yardwork and report relief of right hip and lateral thigh pain following treatment. *Precautions: n/a Pain Assessment - Pain Description Pain Location: lowback, right hip Current Pain Intensity: moderate - Treatment Modality: Electrical Stim Unattended Parameters/Method Applied: [id number] HVGC to 175p.v. to the right gluteal area and across lower lumbar paraspinals with HP prior to EX. Patient Position: Supine - Heat/Cryotherapy Treatment: Hot Pack (with Estim ) Interventions - Exercise/Activities/Manual Therapy Exercises/Activities: Assisted stretching of the hamstrings, SKTC, and piriformis bilaterally. Pelvic tilt, isometric hip add, isometric hip flexion. Muscle energy with RLE into ext, LLE into flex. Right LE isometric extension. Bridging 3reps. Patient education of dx, body mechanics, and safety with ADL' s. DIscussion and demonstration of safe posture with daily activities. Total minutes of Exercise: 24mins Manual Therapy: n/a HOME EXERCISE PROGRAM: pt given written HEP including: pelvic tilt, resisted hip flex, hamstring stretch, piriformis stretch. - Charges Timed Code Treatment Minutes: 24mins Total Treatment Time: 50mins Procedures billed for this date of service:: HP, Estim unattended, EX2 Assessment: Patient reporting reduction in pain with last treatment and appears to be working on HEP. Patient Education: Education of diagnosis, Body/Joint mechanics, Home Exercise Program, Home Safety, Activity Modification Comments: Extensive patient education of modification and safe with ADL's, including yardwork. Patient demonstrates compliance with HEP?: Yes Short Term Goals Goal #1: pt independent with intial HEP Goal to be met by: 01/14/19 Progress towards Goal:: Progressing Goal #2: Decrease LBP < 7/10 with activity Goal to be met by: 01/14/19 Progress towards Goal:: Progressing Goal #3: Improve flexibility BLE hamstring/piriformis muscles. Goal to be met by: 01/14/19 Goal #4: Leg length equal Goal to be met by: 01/14/19 Geriatric Personal Care Aide Goals Goal #1: pt report no radicular pain into RLE Goal to be met by: 02/04/19 Goal #2: pt report able to perform normal daily activities w less pain Goal to be met by: 02/04/19 Goal #3: Oswestry score improved to < 25 Goal to be met by: 02/04/19 Plan Dates of Senior Living Goals: 02/04/19 Expiration date of current Insurance Approval:: 02/04/19 PLAN: Continue modalities and exercise to reduce pain and increase functional activity level.
--- NOTE | 2018-12-31 14:50 | RS.OPPTDN ---
Subjective Date of Note: 12/31/18 Visit #: 3 Number of visits approved by Insurance: na Date of Evaluation: 12/27/18 Payer Source: MEDICARE Treatment Diagnosis: low back pain with radicular pain into RLE Current Subjective/complaints:: Patient first states he is not sure how much therapy is helping, then later states he does see progress and has less intensity of pain since having therapy treatment. *Precautions: n/a Pain Assessment - Pain Description Pain Location: lowback, right S-I, right gluteal area Pain Description: Aching Current Pain Intensity: mod, mild following treatment Worst Pain Intensity: 7/10 - Treatment Modality: Electrical Stim Unattended Parameters/Method Applied: [id number] HVGC to 175p.v. across the lower lumbar paraspinals and the right S-I joint area with CP prior to EX. Patient Position: Supine - Heat/Cryotherapy Treatment: Cryotherapy (CP with Estim ) Interventions - Exercise/Activities/Manual Therapy Exercises/Activities: Assisted stretching of the hamstrings, SKTC, and piriformis bilaterally. Pelvic tilt, isometric hip add, isometric hip flexion. Muscle energy with RLE into ext, LLE into flex. Right LE isometric extension, multiple reps for MET. Bridging 2reps. Reviewed patient education of dx, body mechanics, and safety with ADL's. Patient education of pelvic alignment and benefits of MET and corrective exercise. Total minutes of Exercise: 19mins Manual Therapy: n/a HOME EXERCISE PROGRAM: pt given written HEP including: pelvic tilt, resisted hip flex, hamstring stretch, piriformis stretch. - Objective Findings Observations,measurements,etc.: Demos right leg longer that left by approx 1/4 to 1/2", slightly reduced with MET. - Charges Timed Code Treatment Minutes: 19mins Total Treatment Time: 42mins Procedures billed for this date of service:: CP, Estim unattended, EX Assessment: Patient seeing some improvement in intensity of pain. He is attentive with all instruction and appears to be working on HEP. Patient Education: Body/Joint mechanics, Home Exercise Program, Activity Modification Patient demonstrates compliance with HEP?: Yes Short Term Goals Goal #1: pt independent with intial HEP Goal to be met by: 01/14/19 Progress towards Goal:: Met Goal #2: Decrease LBP < 7/10 with activity Goal to be met by: 01/14/19 Progress towards Goal:: Progressing Goal #3: Improve flexibility BLE hamstring/piriformis muscles. Goal to be met by: 01/14/19 Progress towards Goal:: Progressing Goal #4: Leg length equal Goal to be met by: 01/14/19 Food Counter Attendant Goals Goal #1: pt report no radicular pain into RLE Goal to be met by: 02/04/19 Goal #2: pt report able to perform normal daily activities w less pain Goal to be met by: 02/04/19 Goal #3: Oswestry score improved to < 25 Goal to be met by: 02/04/19 Plan Dates of Food Counter Attendant Goals: 02/04/19 Expiration date of current Insurance Approval:: 02/04/19 PLAN: Continue modalities and progress exercise to reduce pain and increase functional activity level.
--- NOTE | 2019-01-03 16:32 | RS.OPPTDN ---
Subjective Date of Note: 01/03/19 Visit #: 4 Number of visits approved by Insurance: na Date of Evaluation: 12/27/18 Payer Source: MEDICARE Treatment Diagnosis: low back pain with radicular pain into RLE Current Subjective/complaints:: Patient reports he had only low pain when he got up this morning. States he noticed increased right hip/glut pain with activity, but it is much lower in intensity. *Precautions: n/a Pain Assessment - Pain Description Pain Location: lowback, right S-I, right glut Pain Description: Dull, Aching Current Pain Intensity: mod - Treatment Modality: Electrical Stim Unattended Parameters/Method Applied: [id number] HVGC to 165-175p.v. to right gluteal region and across lowback with CP prior to EX. Patient Position: Supine - Heat/Cryotherapy Treatment: Cryotherapy (with Estim ) Interventions - Exercise/Activities/Manual Therapy Exercises/Activities: Assisted stretching of the hamstrings, SKTC, and piriformis bilaterally. Isometric hip add, isometric hip flexion. Muscle energy with right isometric hip flexion and left isometric hip extension. Right LE isometric extension with contract/relax stretching. Pelvic tilts. Bridging 2reps. Patient education of dx, body mechanics, and benefits of MET. Total minutes of Exercise: 20mins Manual Therapy: n/a HOME EXERCISE PROGRAM: pt given written HEP including: pelvic tilt, resisted hip flex, hamstring stretch, piriformis stretch. Bridging. - Charges Timed Code Treatment Minutes: 20mins Total Treatment Time: 44mins Procedures billed for this date of service:: CP, Estim unattended, EX Assessment: Patient reporting consistent progress with pain. He appears to be working on HEP. Patient Education: Home Exercise Program Patient demonstrates compliance with HEP?: Yes Short Term Goals Goal #1: pt independent with intial HEP Goal to be met by: 01/14/19 Progress towards Goal:: Met Goal #2: Decrease LBP < 7/10 with activity Goal to be met by: 01/14/19 Progress towards Goal:: Progressing Goal #3: Improve flexibility BLE hamstring/piriformis muscles. Goal to be met by: 01/14/19 Progress towards Goal:: Progressing Goal #4: Leg length equal Goal to be met by: 01/14/19 Rhia Goals Goal #1: pt report no radicular pain into RLE Goal to be met by: 02/04/19 Goal #2: pt report able to perform normal daily activities w less pain Goal to be met by: 02/04/19 Goal #3: Oswestry score improved to < 25 Goal to be met by: 02/04/19 Plan Dates of Nursing Home Goals: 02/04/19 Expiration date of current Insurance Approval:: 02/04/19 PLAN: Progress with exercise to reduce pain and increase functional activity level.
--- NOTE | 2019-01-05 12:11 | RS.OPPTDN ---
Subjective Date of Note: 01/05/19 Visit #: 5 Number of visits approved by Insurance: na Date of Evaluation: 12/27/18 Payer Source: MEDICARE Treatment Diagnosis: low back pain with radicular pain into RLE Current Subjective/complaints:: Patient reports he has had a soreness in his mid and lower abdomin. He states he has diverticulitis and he occasionally has this symptom. He reports his back and right hip are much better and he was able to do some light work in his flowerbeds this morning with only min to mod discomfort. *Precautions: n/a Pain Assessment - Pain Description Pain Location: lowback, right gluteal region Pain Description: Tightness, Dull Current Pain Intensity: mild, mild to mod with activity - Treatment Modality: Electrical Stim Unattended Parameters/Method Applied: [id number] HVGC to 165p.v. to right gluteal region and across lowback with CP prior to EX. Patient Position: Supine - Heat/Cryotherapy Treatment: Cryotherapy (with Estim ) Interventions - Exercise/Activities/Manual Therapy Exercises/Activities: Assisted stretching of the hamstrings, SKTC, and piriformis bilaterally. Isometric left hip flexion. Muscle energy with right isometric hip extension and left isometric hip flexion. Right LE isometric extension with contract/relax for hamstring stretching. Pelvic tilts. Stopped bridging due to increased soreness in abdominals. Patient education of dx, body mechanics, and benefits of MET. Total minutes of Exercise: 12mins Manual Therapy: n/a HOME EXERCISE PROGRAM: pt given written HEP including: pelvic tilt, resisted hip flex, hamstring stretch, piriformis stretch. Bridging. - Charges Timed Code Treatment Minutes: 12mins Total Treatment Time: 40mins Procedures billed for this date of service:: CP, Estim unattended, EX Assessment: Patient reporting progress with back and right gluteal/hip pain and improvement with his functional activity level. Unable to progress exercise today due to abdominal discomfort caused by another problem patient has been treated for in the past. Patient Education: Body/Joint mechanics, Home Exercise Program, Activity Modification Patient demonstrates compliance with HEP?: Yes Short Term Goals Goal #1: pt independent with intial HEP Goal to be met by: 01/14/19 Progress towards Goal:: Met Goal #2: Decrease LBP < 7/10 with activity Goal to be met by: 01/14/19 Progress towards Goal:: Partially Met Comments:: only mild to mod discomfort today with light work in yard/[place]. Goal #3: Improve flexibility BLE hamstring/piriformis muscles. Goal to be met by: 01/14/19 Progress towards Goal:: Progressing Goal #4: Leg length equal Goal to be met by: 01/14/19 Granite Sandblaster Apprentice Goals Goal #1: pt report no radicular pain into RLE Goal to be met by: 02/04/19 Progress towards goal: Progressing Goal #2: pt report able to perform normal daily activities w less pain Goal to be met by: 02/04/19 Progress towards goal: Progressing Goal #3: Oswestry score improved to < 25 Goal to be met by: 02/04/19 Plan Dates of Granite Sandblaster Apprentice Goals: 02/04/19 Expiration date of current Insurance Approval:: 02/04/19 PLAN: Continue modalities and progress exercise to resolve symptoms and return patient to PLOF.
--- NOTE | 2019-01-07 14:57 | RS.OPPTDN ---
Subjective Date of Note: 01/07/19 Visit #: 6 Number of visits approved by Insurance: na Date of Evaluation: 12/27/18 Payer Source: MEDICARE Treatment Diagnosis: low back pain with radicular pain into RLE Current Subjective/complaints:: Patient reports only mild discomfort at LB and right hip/glut. States he is having more stomach issues that he feels are related to new medication. *Precautions: n/a Pain Assessment - Pain Description Pain Location: lowback, right glut, right lateral hip Pain Description: Aching Current Pain Intensity: mild - Treatment Modality: Electrical Stim Unattended Parameters/Method Applied: [id number] HVGC to 160p.v. with 4 large pads to right lowback and gluteal area with CP prior to EX. Patient Position: Supine - Heat/Cryotherapy Treatment: Cryotherapy (with Estim ) Interventions - Exercise/Activities/Manual Therapy Exercises/Activities: Assisted stretching of the hamstrings, SKTC, and piriformis bilaterally. Isometric left hip flexion and isometric hip add. Focus on stretching only due to patient not feeling well today. Total minutes of Exercise: 12mins Manual Therapy: n/a HOME EXERCISE PROGRAM: pt given written HEP including: pelvic tilt, resisted hip flex, hamstring stretch, piriformis stretch. Bridging. - Charges Timed Code Treatment Minutes: 12mins Total Treatment Time: 35mins Procedures billed for this date of service:: CP, Estim unattended, EX Assessment: Patient reporting improvement in LB and right gluteal area pain but unable to progress exercise due to stomach problems. Patient Education: Home Exercise Program Patient demonstrates compliance with HEP?: Yes Short Term Goals Goal #1: pt independent with intial HEP Goal to be met by: 01/14/19 Progress towards Goal:: Met Goal #2: Decrease LBP < 7/10 with activity Goal to be met by: 01/14/19 Progress towards Goal:: Met Goal #3: Improve flexibility BLE hamstring/piriformis muscles. Goal to be met by: 01/14/19 Progress towards Goal:: Progressing Goal #4: Leg length equal Goal to be met by: 01/14/19 Retirement Goals Goal #1: pt report no radicular pain into RLE Goal to be met by: 02/04/19 Progress towards goal: Progressing Goal #2: pt report able to perform normal daily activities w less pain Goal to be met by: 02/04/19 Progress towards goal: Progressing Goal #3: Oswestry score improved to < 25 Goal to be met by: 02/04/19 Plan Dates of Geomatics Professor Goals: 02/04/19 Expiration date of current Insurance Approval:: 02/04/19 PLAN: Continue treatment next week and progress exercise.
--- NOTE | 2019-01-10 14:21 | RS.OPPTDN ---
Subjective Date of Note: 01/10/19 Visit #: 7 Number of visits approved by Insurance: Reassess at 10 Date of Evaluation: 12/27/18 Payer Source: MEDICARE Treatment Diagnosis: low back pain with radicular pain into RLE Current Subjective/complaints:: Patient says he is still battling stomach issues and requests for me to " Be easy" on him today. Denies taking pain medication due to the side effects on his stomach, but it is still irritated today. He asks if he can switch to heat today. *Precautions: n/a Pain Assessment - Pain Description Current Pain Intensity: 5/10 - Treatment Modality: Electrical Stim Unattended Parameters/Method Applied: hivolt 4 large pads to the R lower lumbar and SI region @ 155-170 pk volts x 20 mins Patient Position: Left Sidelying - Heat/Cryotherapy Treatment: Hot Pack (with estim) Interventions - Exercise/Activities/Manual Therapy Exercises/Activities: Gentler stretching bilaterally for SKTC, Hamstrings, Piriformis, Figure 4, lower trunk rotation, heel cords x 3 ea. Pillow squeezes 2x10, isometric hip abd 2x5. Total minutes of Exercise: 16 Manual Therapy: n/a HOME EXERCISE PROGRAM: pt given written HEP including: pelvic tilt, resisted hip flex, hamstring stretch, piriformis stretch. Bridging. - Charges Timed Code Treatment Minutes: 16 Total Treatment Time: 36 Procedures billed for this date of service:: hp, estim (un), ex Assessment: Patient continues to have difficulty with toleration to stretches/ treatment related to diverticulitis. He is mostly experiencing stiffness to the low back and mild pain to the R hip/SI joint. He does admit feeling better following treatment today. Limitations remain with mm flexibility particularly with R HS/piriformis. Patient wished to modify treatment from cp to heat, which he did verbalize improvement. Patient Education: Education of diagnosis, Home Exercise Program, Education of Plan of Care Patient demonstrates compliance with HEP?: Yes (as able) Short Term Goals Goal #1: pt independent with intial HEP Goal to be met by: 01/14/19 Progress towards Goal:: Met Goal #2: Decrease LBP < 7/10 with activity Goal to be met by: 01/14/19 Progress towards Goal:: Met Goal #3: Improve flexibility BLE hamstring/piriformis muscles. Goal to be met by: 01/14/19 Progress towards Goal:: Progressing Goal #4: Leg length equal Goal to be met by: 01/14/19 Half-Way Goals Goal #1: pt report no radicular pain into RLE Goal to be met by: 02/04/19 Progress towards goal: Progressing Goal #2: pt report able to perform normal daily activities w less pain Goal to be met by: 02/04/19 Progress towards goal: Progressing Goal #3: Oswestry score improved to < 25 Goal to be met by: 02/04/19 Plan Dates of Armature Rewinder Goals: 02/04/19 Expiration date of current Insurance Approval:: 02/04/19 PLAN: Continue TIW for modalities and therex to improve pain, flexibility, and strength.
--- NOTE | 2019-01-12 11:59 | RS.OPPTDN ---
Subjective Date of Note: 01/12/19 Visit #: 8 Number of visits approved by Insurance: na Date of Evaluation: 12/27/18 Payer Source: MEDICARE Treatment Diagnosis: low back pain with radicular pain into RLE Current Subjective/complaints:: Patient states he would like heat again today. States his pain is more of a soreness and he is doing light daily activities without an increase in his pain level. *Precautions: n/a Pain Assessment - Pain Description Pain Location: right lowback and hip area Pain Description: Tightness, Dull, Aching Current Pain Intensity: mild - Treatment Modality: Electrical Stim Unattended Parameters/Method Applied: [id number] HVGC to 125-130p.v. with 4 pads to the right lowback and gluteal area with HP prior to EX. Pt in supine. Patient Position: Supine - Heat/Cryotherapy Treatment: Hot Pack (with Estim ) Interventions - Exercise/Activities/Manual Therapy Exercises/Activities: Assisted stretching for bilateral SKTC, Hamstrings, Piriformis, Figure 4, lower trunk rotation. Glut and abdominal sets. Isometric hip abd, isometric hip flexion. MET with isometric hip ext on right and hip flexion on left. Attempts half bridge on right with isometric hip flexion on left for MET. Ended with double leg bridging. Total minutes of Exercise: 12mins Manual Therapy: n/a HOME EXERCISE PROGRAM: pt given written HEP including: pelvic tilt, resisted hip flex, hamstring stretch, piriformis stretch. Bridging. - Objective Findings Observations,measurements,etc.: Demos slight longer leg length on right, respovled with MET. - Charges Timed Code Treatment Minutes: 12mins Total Treatment Time: 37mins Procedures billed for this date of service:: HP, Estim unattended, EX Assessment: Paitent benefitting form treatment and MET to realign pelvis. He consistently reports seeing improvment in pain and increase in ability to perform light ADL's. Patient Education: Body/Joint mechanics, Home Exercise Program, Activity Modification Comments: Patient education and discussion of HEP, safety, and good body mechanics. Patient demonstrates compliance with HEP?: Yes Short Term Goals Goal #1: pt independent with intial HEP Goal to be met by: 01/14/19 Progress towards Goal:: Met Goal #2: Decrease LBP < 7/10 with activity Goal to be met by: 01/14/19 Progress towards Goal:: Met Goal #3: Improve flexibility BLE hamstring/piriformis muscles. Goal to be met by: 01/14/19 Progress towards Goal:: Progressing Goal #4: Leg length equal Goal to be met by: 01/14/19 It Architecture Consultant Goals Goal #1: pt report no radicular pain into RLE Goal to be met by: 02/04/19 Progress towards goal: Progressing Goal #2: pt report able to perform normal daily activities w less pain Goal to be met by: 02/04/19 Progress towards goal: Partially Met Goal #3: Oswestry score improved to < 25 Goal to be met by: 02/04/19 Plan Dates of It Architecture Consultant Goals: 02/04/19 Expiration date of current Insurance Approval:: 02/04/18 PLAN: Continue modalities and progress exercise to reduce pain and increase functional activity level.
--- NOTE | 2019-01-14 15:58 | RS.OPPTDN ---
Subjective Date of Note: 01/14/19 Visit #: 9 Number of visits approved by Insurance: na Date of Evaluation: 12/27/18 Payer Source: MEDICARE Treatment Diagnosis: low back pain with radicular pain into RLE Current Subjective/complaints:: Patient reports his pain has decreased significantly since starting treatment. States he is performing all light ADL's , sleeping most of the night, and has resumed walking in the mornings. States he is consistently working on HEP. States he continues to have pain but feels he is ready for discharge and will continue to progress HEP. *Precautions: n/a Pain Assessment - Pain Description Pain Location: lowback right gluteal area Pain Description: Dull Current Pain Intensity: mild, periods of no pain at rest - Treatment Modality: Electrical Stim Unattended Parameters/Method Applied: [id number] HVGC to 130p.v. with 4 pads to right lowback and gluteal area with HP. Patient Position: Supine - Heat/Cryotherapy Treatment: Hot Pack (with Estim ) Interventions - Exercise/Activities/Manual Therapy Exercises/Activities: Assisted stretching for bilateral SKTC, Hamstrings, piriformis, lower trunk rotation, and ITB. Glut and abdominal sets. Isometric hip abd, isometric hip flexion. MET with isometric hip ext on right and hip flexion on left. Bridging. Reviewed and finalized patient education of dx, joint mechanics, and HEP. Total minutes of Exercise: 18mins Manual Therapy: n/a HOME EXERCISE PROGRAM: pt given written HEP including: pelvic tilt, resisted hip flex, hamstring stretch, piriformis stretch. Bridging. - Objective Findings Observations,measurements,etc.: Pt improved Oswestry score to 14 or 28% (was 40 or 80% on Eval) - Charges Timed Code Treatment Minutes: 18mins Total Treatment Time: 44mins Procedures billed for this date of service:: HP, Estim unattended, EX Assessment: Patient has progressed well and met 6 or 7 treatment goals. He has returned to doing light activities and walking. He will continue HEP. Patient Education: Home Exercise Program, Activity Modification Comments: Reviewed and finalized HEP. Patient demonstrates compliance with HEP?: Yes Short Term Goals Goal #1: pt independent with intial HEP Goal to be met by: 01/14/19 Progress towards Goal:: Met Goal #2: Decrease LBP < 7/10 with activity Goal to be met by: 01/14/19 Progress towards Goal:: Met Goal #3: Improve flexibility BLE hamstring/piriformis muscles. Goal to be met by: 01/14/19 Progress towards Goal:: Met Goal #4: Leg length equal Goal to be met by: 01/14/19 Progress towards Goal:: Met Jail Goals Goal #1: pt report no radicular pain into RLE Goal to be met by: 02/04/19 Progress towards goal: Partially Met Comments: Pain into right gluteal region Goal #2: pt report able to perform normal daily activities w less pain Goal to be met by: 02/04/19 Progress towards goal: Met Goal #3: Oswestry score improved to < 25 Goal to be met by: 02/04/19 Progress towards goal: Met Comments: 14 Plan Dates of Poster Goals: 02/04/19 Expiration date of current Insurance Approval:: 02/04/19 PLAN: Discharge with HEP at patient request due to good progress.
--- NOTE | 2019-01-14 16:09 | RS.OPPTDC ---
Date of Discharge: 01/14/19 Date of Evaluation: 12/27/18 Number of Visits: 9 Treatment Diagnosis: low back pain with radicular pain into RLE Current Level of Function: pt is independent with HEP. pt with improved hamstring length equal leg length with MET. Oswestry LBP scale improved from 40 to 14. Current Complaints/Gains: pt reports improvement in ability to perform all ADL' s. States he can sleep most of the night and has resumed walking in the morning. Functional Outcome Measure Oswestry LBP: 14 - G Codes & Severity Modifier G Codes & Modifier: n/a Source of G Code score: na Observation - Observation Posture: Forward Head, Rounded Shoulders Interventions - Exercise/Activities/Manual Therapy Exercises/Activities: n/a Manual Therapy: n/a HOME EXERCISE PROGRAM: pt given written HEP including: pelvic tilt, resisted hip flex, hamstring stretch, piriformis stretch. Bridging. - Charges Timed Code Treatment Minutes: n/a Total Treatment Time: n/a Procedures billed for this date of service:: n/a Assessment Assessment: pt has made progress. pt request to be dc due to good progress. pt has met all goals. pt is independent with HEP Patient Education: Home Exercise Program, Education of Plan of Care Rehab Potential: Good Short Term Goals Goal #1: pt independent with intial HEP Goal to be met by: 01/14/19 Progress towards Goal:: Met Goal #2: Decrease LBP < 7/10 with activity Goal to be met by: 01/14/19 Progress towards Goal:: Met Goal #3: Improve flexibility BLE hamstring/piriformis muscles. Goal to be met by: 01/14/19 Progress towards Goal:: Met Goal #4: Leg length equal Goal to be met by: 01/14/19 Progress towards Goal:: Met Fpc Goals Goal #1: pt report no radicular pain into RLE Goal to be met by: 02/04/19 Progress towards goal: Met Goal #2: pt report able to perform normal daily activities w less pain Goal to be met by: 02/04/19 Progress towards goal: Met Goal #3: Oswestry score improved to < 25 Goal to be met by: 02/04/19 Progress towards goal: Met Plan Reason for Discharge:: All Goals Met
== END 2019-01-15 23:59 ==
PROVIDERS: ATTEND Orthopaedic Surgery Orthopaedic Surgery of the Spine
DX: M54.5 Low back pain (principal)

== ENCOUNTER 2021-07-01 10:14 | Inpatient (IN) ==
[2021-07-01 10:26] LABS: BORDETELLA PARAPERTUSSIS (PCR) NOT DETECTED (NOT DETECT); BORDETELLA PERTUSSIS (PCR) NOT DETECTED (NOT DETECT); CHLAMYDIA PNEUMONIAE (PCR) NOT DETECTED (NOT DETECT); CORONAVIRUS 229E (PCR) NOT DETECTED (NOT DETECT); CORONAVIRUS HKU1 (PCR) NOT DETECTED (NOT DETECT); CORONAVIRUS NL63 (PCR) NOT DETECTED (NOT DETECT); CORONAVIRUS OC43 (PCR) NOT DETECTED (NOT DETECT); HUMAN METAPNEUMOVIRUS (PCR) NOT DETECTED (NOT DETECT); HUMAN RHINOVIRUS/ENTEROV (PCR) NOT DETECTED (NOT DETECT); INFLUENZA B (PCR) NOT DETECTED (NOT DETECT); MYCOPLASMA PNEUMONIAE (PCR) NOT DETECTED (NOT DETECT); PARAINFLUENZA VIRUS 1 (PCR) NOT DETECTED (NOT DETECT); PARAINFLUENZA VIRUS 2 (PCR) NOT DETECTED (NOT DETECT); PARAINFLUENZA VIRUS 3 (PCR) NOT DETECTED (NOT DETECT); PARAINFLUENZA VIRUS 4 (PCR) NOT DETECTED (NOT DETECT); RESPIRATORY SYNCYTIAL V (PCR) NOT DETECTED (NOT DETECT); SARS_COV_2 (PCR) NOT DETECTED (NOT DETECT)
[2021-07-01 11:12] LABS: ADENOVIRUS (PCR) NOT DETECTED (NOT DETECT)
[2021-07-01 14:46] VITALS: BMI 29.9
[2021-07-01] MEDS ORDERED: FEXOFENADINE 180 MG PO PRN (14:53)
[2021-07-01] MEDS ORDERED: TYLENOL PO PRN (14:58)
[2021-07-01] MEDS ORDERED: NITROSTAT SL PRN (14:58)
[2021-07-01] MEDS ORDERED: ATROPINE SULFATE PFS IVP PRN (14:58)
[2021-07-01] MEDS ORDERED: TRADJENTA PO SCH ×2 (15:00→15:30)
[2021-07-01] MEDS ORDERED: CLARITIN PO PRN (15:08)
[2021-07-01 15:37] LABS: BASOPHILS % (AUTO) 0.2 % (0.0-3.0); EOSINOPHILS % (AUTO) 0.4 % (0.0-7.0); HEMATOCRIT 39.9 % (42.0-52.0); HEMOGLOBIN 13.8 g/dl (14.0-18.0); IMMATURE GRANULOCYTE % (AUTO) 0.4 % (0.0-5.0); LYMPHOCYTES # (AUTO) 3.2 K/uL (0.60-3.4); LYMPHOCYTES % (AUTO) 39.4 (10.0-50.0); MEAN CORPUSCULAR HEMOGLOBIN 30.7 pg (27.0-31.0); MEAN CORPUSCULAR HGB CONC 34.6 (31.8-35.4); MEAN CORPUSCULAR VOLUME 88.7 fl (80.0-94.0); MONOCYTES # (AUTO) 0.6 K/uL (0.4-2.0); MONOCYTES % (AUTO) 7.5 (0-10); NEUTROPHILS # (AUTO) 4.2 K/ul (2.0-6.9); NEUTROPHILS % (AUTO) 52.1 % (42.2-75.2); PLATELET COUNT 186 10^3/uL (140-440); RDW COEFFICIENT OF VARIATION 12.7 % (11.6-14.8); WHITE BLOOD COUNT 8.02 K/ul (4.2-10.2)
[2021-07-01 15:42] LABS: BILIRUBIN,URINE Negative (NEGATIVE); CLARITY,URINE Clear (CLEAR); COLOR,URINE Yellow (YELLOW); GLUCOSE, URINE (UA) Negative (NEGATIVE); KETONES,URINE Negative (NEGATIVE); LEUKOCYTE ESTERASE ,URINE Negative (NEGATIVE); NITRITE,URINE Negative (NEGATIVE); PROTEIN,URINE Negative (NEGATIVE); URINE, BLOOD Negative (NEGATIVE); UROBILINOGEN,URINE 0.2 (0.2)
--- NOTE | 2021-07-01 15:50 | DI ---
EXAM: Chest one view HISTORY: Shortness of breath COMPARISON: 06/27/2021 TECHNIQUE: Single view of the chest was performed FINDINGS: The lungs are clear. There is no pleural effusion or pneumothorax. The heart is normal i n size. The mediastinal contour is normal. There are no acute abnormalities of the bones. IMPRESSION: No acute cardiopulmonary process.
[2021-07-01 15:52] LABS: ALANINE AMINOTRANSFERASE 26.3 U/L (0-50); ALBUMIN 4.32 g/dL (3.5-5.0); ASPARTATE AMINO TRANSFERASE 26.6 U/L (17-59); BILIRUBIN,TOTAL 0.58 mg/dL (0.2-1.3); BLOOD UREA NITROGEN 25.1 mg/dL (9-20); CALCIUM 9.55 mg/dL (8.4-10.2); CARBON DIOXIDE 24.1 mmol/L (22-30.0); CHLORIDE 107.9 mmol/L (98-107); CREATININE 1.87 mg/dL (0.60-1.10); GLUCOSE 180.2 mg/dL (74-106); POTASSIUM 2.83 mmol/L (3.5-5.1); SODIUM 139.9 mmol/L (134.5-145); TOTAL PROTEIN 7.23 g/dL (6.3-8.2)
[2021-07-01] MEDS: SODIUM CHLORIDE 1,000 ML IV SCH (16:17)
[2021-07-01] MEDS: SOLU-CORTEF 100 MG IVP SCH ×2 (16:17→21:42)
[2021-07-01] MEDS: ZITHROMAX PO SCH (16:17)
[2021-07-01] MEDS: ROCEPHIN 1 GM/50 ML D5W 1 GM/50 ML BAG IV SCH (16:17)
[2021-07-01] MEDS ORDERED: K-DUR PO ONE ×3 (17:30→21:30)
[2021-07-01] MEDS: CRESTOR PO SCH (20:51)
[2021-07-01] MEDS: SODIUM BICARBONATE PO SCH (20:51)
[2021-07-01] MEDS: NORVASC PO SCH (20:51)
[2021-07-02] MEDS: SODIUM CHLORIDE 1,000 ML IV SCH (05:22)
[2021-07-02] MEDS: PROTONIX PO SCH (05:42)
[2021-07-02] MEDS: SOLU-CORTEF 100 MG IVP SCH ×3 (05:42→20:28)
[2021-07-02 06:06] LABS: BASOPHILS % (AUTO) 0.1 % (0.0-3.0); HEMATOCRIT 38.2 % (42.0-52.0); HEMOGLOBIN 12.8 g/dl (14.0-18.0); IMMATURE GRANULOCYTE % (AUTO) 0.4 % (0.0-5.0); LYMPHOCYTES # (AUTO) 1.7 K/uL (0.60-3.4); LYMPHOCYTES % (AUTO) 23.1 (10.0-50.0); MEAN CORPUSCULAR HEMOGLOBIN 29.5 pg (27.0-31.0); MEAN CORPUSCULAR HGB CONC 33.5 (31.8-35.4); MONOCYTES # (AUTO) 0.5 K/uL (0.4-2.0); MONOCYTES % (AUTO) 6.2 (0-10); NEUTROPHILS # (AUTO) 5.1 K/ul (2.0-6.9); NEUTROPHILS % (AUTO) 70.2 % (42.2-75.2); PLATELET COUNT 183 10^3/uL (140-440); RDW COEFFICIENT OF VARIATION 12.6 % (11.6-14.8); RED BLOOD COUNT 4.34 10^6/ul (4.70-6.10); WHITE BLOOD COUNT 7.31 K/ul (4.2-10.2)
[2021-07-02 06:19] LABS: ALANINE AMINOTRANSFERASE 25.5 U/L (0-50); ALBUMIN 3.83 g/dL (3.5-5.0); ALKALINE PHOSPHATASE 57.1 U/L (56-119); ASPARTATE AMINO TRANSFERASE 24.6 U/L (17-59); BILIRUBIN,TOTAL 0.53 mg/dL (0.2-1.3); BLOOD UREA NITROGEN 25.3 mg/dL (9-20); CALCIUM 9.03 mg/dL (8.4-10.2); CREATININE 1.79 mg/dL (0.60-1.10); GLUCOSE 126.9 mg/dL (74-106); POTASSIUM 3.97 mmol/L (3.5-5.1); SODIUM 139.6 mmol/L (134.5-145); TOTAL PROTEIN 6.65 g/dL (6.3-8.2)
[2021-07-02] MEDS: SODIUM BICARBONATE PO SCH ×2 (10:21→20:27)
[2021-07-02] MEDS: NORVASC PO SCH ×2 (10:21→20:00)
[2021-07-02] MEDS: FLOMAX PO SCH (10:21)
[2021-07-02] MEDS: ZITHROMAX PO SCH (10:21)
[2021-07-02] MEDS: COZAAR PO SCH (10:21)
[2021-07-02] MEDS: K-DUR PO SCH ×3 (10:22→16:56)
[2021-07-02] MEDS: ROCEPHIN 1 GM/50 ML D5W 1 GM/50 ML BAG IV SCH (10:22)
[2021-07-02] MEDS: CRESTOR PO SCH (20:27)
[2021-07-03] MEDS: SOLU-CORTEF 100 MG IVP SCH ×3 (05:34→20:42)
[2021-07-03] MEDS: PROTONIX PO SCH (05:34)
[2021-07-03 06:34] LABS: BASOPHILS % (AUTO) 0.1 % (0.0-3.0); HEMATOCRIT 38.2 % (42.0-52.0); HEMOGLOBIN 12.9 g/dl (14.0-18.0); IMMATURE GRANULOCYTE % (AUTO) 0.4 % (0.0-5.0); LYMPHOCYTES # (AUTO) 2.9 K/uL (0.60-3.4); LYMPHOCYTES % (AUTO) 28.4 (10.0-50.0); MEAN CORPUSCULAR HGB CONC 33.8 (31.8-35.4); MEAN CORPUSCULAR VOLUME 88.8 fl (80.0-94.0); MONOCYTES # (AUTO) 0.6 K/uL (0.4-2.0); MONOCYTES % (AUTO) 5.8 (0-10); NEUTROPHILS # (AUTO) 6.6 K/ul (2.0-6.9); NEUTROPHILS % (AUTO) 65.3 % (42.2-75.2); PLATELET COUNT 181 10^3/uL (140-440); RDW COEFFICIENT OF VARIATION 12.7 % (11.6-14.8); WHITE BLOOD COUNT 10.04 K/ul (4.2-10.2)
[2021-07-03 06:46] LABS: ALBUMIN 3.9 g/dL (3.5-5.0); BILIRUBIN,TOTAL 0.6 mg/dL (0.2-1.3); CALCIUM 9.2 mg/dL (8.4-10.2); CREATININE 1.7 mg/dL (0.60-1.10); TOTAL PROTEIN 6.9 g/dL (6.3-8.2)
[2021-07-03] MEDS: K-DUR PO SCH ×3 (08:28→17:07)
[2021-07-03] MEDS: ROCEPHIN 1 GM/50 ML D5W 1 GM/50 ML BAG IV SCH (08:28)
[2021-07-03] MEDS: NORVASC PO SCH ×2 (08:29→20:26)
[2021-07-03] MEDS: COZAAR PO SCH (08:29)
[2021-07-03] MEDS: FLOMAX PO SCH (08:29)
[2021-07-03] MEDS: DRISDOL PO SCH (08:29)
[2021-07-03] MEDS: SODIUM BICARBONATE PO SCH ×2 (08:29→20:26)
[2021-07-03] MEDS: ZITHROMAX PO SCH (08:29)
--- NOTE | 2021-07-03 09:59 | HP ---
DATE OF SERVICE: 07/01/21 REASON FOR HOSPITALIZATION/HISTORY OF PRESENT ILLNESS: The patient is tired, dizzy, still coughing and short of breath at times. No fever. Decreased appetite. No signs of symptoms of CHF/CAD/COVID. Lost 2 pounds. Followup on acute bronchitis. Chest x-ray was normal. PAST MEDICAL HISTORY: Hypertension Dyslipidemia DJD spine Left knee osteoarthritis BPH Diverticulosis ASHD Fibromyalgia PAST SURGICAL HISTORY: Cholecystectomy REVIEW OF SYSTEMS: CONSTITUTIONAL: No fever, Fatigue. HEENT: Sinus drainage, Sore throat. RESPIRATORY: Cough, no congestion. CARDIOVASCULAR: No atypical chest pain for coronary artery disease. No angina, CHF symptoms, palpitations. Shortness of breath at times. GASTROINTESTINAL: No melena or abdominal pain. No GERD. GENITOURINARY: No hematuria, no prostatism, no polyuria. PACKAGE SEALER MACHINE: No blackout, Dizziness, Headache, no double vision. MUSCULOSKELETAL: Osteoarthritis pain, no joint swelling. ENDOCRINE: No weight loss, no weight gain. SKIN: Not dry, no rash. PSYCHIATRIC: Not anxious, no depression, no suicidal thoughts, no homicidal thoughts. SOCIAL HISTORY: Marital Status: . Alcohol Usage: No. Tobacco Usage: No. FAMILY HISTORY: Father Mother Brother 1 Sister 1 MEDICATIONS: Protonix 40mg Q daily Crestor 10mg daily Amlodipine 5mg BID Flomax 0.4mg Q daily Losartan 100mg daily Sodium bicarbonate 650mg BID Marsha 180mg daily PRN ALLERGIES: Voltaren upset stomach PHYSICAL EXAMINATION: V/S: Pulse 62, blood pressure 142/80, temperature 98.2, oxygen saturation 99%.. BMI 29.3, height 5'8 and weight 192.8. GENERAL APPEARANCE: Oriented times three. Pallor. HEENT: Dry mucous membranes. Yellow sputum. NECK: No JVP, no bruits. RESPIRATORY: Decreased breath sounds, bilateral rhonchi CARDIOVASCULAR: S1, S2, no S3, no murmur. No cyanosis, clubbing. No ascites. GI/ABDOMEN: No tenderness. Bowel sounds are active. EXTREMITIES: edema, pulses +1, equal. PACKAGE SEALER MACHINE: Deep tendon reflexes, sensory, motor and gait all normal. RECTAL: 07/30 Dr. Fields/PELVIC: Refused /PROSTATE:12-19 (0.3) . ASSESSMENT: 1. Acute pneumonitis 2. Dehydration 3. COPD 4. Acute bronchitis/sinusitis 5. Chronic kidney disease stage 3-4 Dr. Comer 6. Diabetes Mellitus type II A1c 6.5 07/09 7. Hypertension 8. Left kidney atrophy 9. Nephrolithiasis 10.Dyslipidemia 11.Severe DJD spine 12.Left knee osteoarthritis 13.Stress test 01/04 No ischemia 14.Lumbar muscle spasm 15.BPH 16.GERD 17.Fibromyalgia 18.Fatty liver 19.Diverticulosis 20.ASHD 21.Status post cholecystectomy 22.Noncompliance with diet, medications and lifestyle PLAN: 1. Patient to get tested in drive through 2. Labs reviewed and discussed 3. Chest x-ray reviewed and discussed 4. Admit 5. Normal saline at 70ml an hour times two bags 6. Routine telemetry orders. No cardiac markers 7. CBC and CMP now and daily 8. 1 gram Rocephin IV daily 9. Solu-Cortef 100mg IV Q 8 hours 10.Regular diet 11.Zithromax 500mg PO daily 12.Continue home medications 13.O2 at 1-2 liters PRN 14.Regular diet 15.Chest x-ray 16.Add Tradjenta 5mg Po daily TIME SPENT: More than 70 minutes. MTDD
[2021-07-03] MEDS ORDERED: VASOTEC IV IVP PRN (11:07)
[2021-07-03] MEDS: CRESTOR PO SCH (20:26)
[2021-07-04] MEDS: SOLU-CORTEF 100 MG IVP SCH (05:04)
[2021-07-04 05:27] LABS: BASOPHILS % (AUTO) 0.2 % (0.0-3.0); HEMATOCRIT 40.7 % (42.0-52.0); HEMOGLOBIN 14.1 g/dl (14.0-18.0); IMMATURE GRANULOCYTE # (AUTO) 0.1 (0.0-1.0); IMMATURE GRANULOCYTE % (AUTO) 0.8 % (0.0-5.0); LYMPHOCYTES # (AUTO) 2.8 K/uL (0.60-3.4); LYMPHOCYTES % (AUTO) 25.9 (10.0-50.0); MEAN CORPUSCULAR HEMOGLOBIN 30.6 pg (27.0-31.0); MEAN CORPUSCULAR HGB CONC 34.6 (31.8-35.4); MEAN CORPUSCULAR VOLUME 88.3 fl (80.0-94.0); MONOCYTES # (AUTO) 0.5 K/uL (0.4-2.0); MONOCYTES % (AUTO) 4.5 (0-10); NEUTROPHILS # (AUTO) 7.3 K/ul (2.0-6.9); NEUTROPHILS % (AUTO) 68.6 % (42.2-75.2); PLATELET COUNT 206 10^3/uL (140-440); RDW COEFFICIENT OF VARIATION 12.9 % (11.6-14.8); RED BLOOD COUNT 4.61 10^6/ul (4.70-6.10)
[2021-07-04 05:39] LABS: ALANINE AMINOTRANSFERASE 25.5 U/L (0-50); ALBUMIN 4.29 g/dL (3.5-5.0); ALKALINE PHOSPHATASE 64.2 U/L (56-119); ASPARTATE AMINO TRANSFERASE 24.5 U/L (17-59); BILIRUBIN,TOTAL 0.73 mg/dL (0.2-1.3); BLOOD UREA NITROGEN 24.1 mg/dL (9-20); CALCIUM 9.01 mg/dL (8.4-10.2); CARBON DIOXIDE 21.9 mmol/L (22-30.0); CHLORIDE 112.4 mmol/L (98-107); CREATININE 1.67 mg/dL (0.60-1.10); GLUCOSE 136.7 mg/dL (74-106); POTASSIUM 4.23 mmol/L (3.5-5.1); TOTAL PROTEIN 7.27 g/dL (6.3-8.2)
[2021-07-04] MEDS: PROTONIX PO SCH (05:53)
--- NOTE | 2021-07-04 09:20 | PCM.PROG ---
Attending Provider: ATTENDING PROVIDER: Dr. MIGUEL GARAY This patient is seen with Georgette Diaz, Nurse Practitioner. DATE OF SERVICE: 07/04/21 SUBJECTIVE: This 80 year old AA/BLACK M was hospitalized 07/01/21. Feeling some better. Eating well and has been up and about in the room. Anticipate possible discharge tomorrow. REVIEW OF SYSTEMS: CONSTITUTIONAL: No night sweats. Fatigue. No fever or chills. HEENT: Eyes: No visual changes. No eye pain. No eye discharge. ENT: No runny nose. No epistaxis. No sinus pain. No odynophagia. No congestion. RESPIRATORY: Cough, no congestion. No hemoptysis. No shortness of breath. CARDIOVASCULAR: No angina symptoms. No CHF symptoms. No atypical chest pain for CAD. No palpitations. No orthopnea.. GASTROINTESTINAL: No abdominal pain. No nausea or vomiting. No diarrhea or constipation. No hematemesis. No hematochezia. GENITOURINARY: No urgency. No frequency. No dysuria. No hematuria. No obstructive symptoms. No discharge. No pain. No significant abnormal bleeding. MUSCULOSKELETAL: No musculoskeletal pain; no joint swelling. NEUROLOGICAL: Awake, alert, oriented to time, place and person. No headache. No neck pain. No syncope. No seizures. No dizziness. PSYCHIATRIC: Not anxious. No depression. No suicidal thoughts. No homicidal thoughts. SKIN: No rash. No lesions. No wounds. ENDOCRINE: No unexplained weight loss. No weight gain. HEMATOLOGIC/LYMPHATIC: No anemia. No purpura. No petechiae. No prolonged or excessive bleeding. No palpable lymph nodes. PHYSICAL EXAMINATION: GENERAL: The patient is awake, alert and oriented, sitting in bed in no distress. VITAL SIGNS: Temperature 97.8 F, Pulse 60, Respiratory Rate 20, BP 143/83, Pulse Ox 98% HEENT: Head normocephalic, atraumatic. Eyes: Extraocular muscles are intact. Pupils are equal, round and reactive to light and accommodation. Ears: No lesions. Nose appeared normal. Throat: No exudate or erythema. NECK: Supple. No JVD, no carotid bruit. No lymphadenopathy or thyromegaly. LUNGS: Diminished breath sounds. Clear to auscultation. Percussion note normal. Chest symmetrical. HEART: S1, S2, no S3. No murmurs. No cyanosis or clubbing. No ascites. Pulses: Dorsalis pedis and posterior tibial pulses +1 to +2 both sides. ABDOMEN: Soft. Non-tender. Bowel sounds active. No CVA tenderness. No mass felt. EXTREMITIES: No edema. Full range of motion of all extremities, equal. NEUROLOGIC: No focal deficit. Cranial nerves II through XII are grossly intact. No headache. No double vision. SKIN: Not dry. Intact. Turgor-normal. LYMPHATIC: No palpable lymph nodes/no lymphedema. MUSCULOSKELETAL: Normal joints with no swelling. Muscle tone is normal. LAB REVIEW: 07/04/21 04:50 07/04/21 04:40 07/04/21 04:50: WBC 10.70 H, RBC 4.61 L, Hgb 14.1, Hct 40.7 L, MCV 88.3, MCH 30.6, MCHC 34.6, RDW Coeff of [place]man 12.9, Plt Count 206, Immature Gran % (Auto) 0.8, Neut % (Auto) 68.6, Lymph % (Auto) 25.9, [place] % (Auto) 4.5, Eos % (Auto) 0.0, Baso % (Auto) 0.2, Neut # (Auto) 7.3 H, Lymph # (Auto) 2.8, [place] # (Auto) 0.5, Eos # (Auto) 0.0, Baso # (Auto) 0.0, Immature Gran # (Auto) 0.1 07/04/21 04:40: Sodium 142.0, Potassium 4.23, Chloride 112.4 H, Carbon Dioxide 21.9 L, Anion Gap 11.93, BUN 24.1 H, Creatinine 1.67 H, Estimated GFR (MDRD) 48.00, BUN/Creatinine Ratio 14.43, Glucose 136.7 H, Calcium 9.01, Total Bilirubin 0.73, AST 24.5, ALT 25.5, Alkaline Phosphatase 64.2, Total Protein 7.27, Albumin 4.29, Globulin 2.98, Albumin/Globulin Ratio 1.43 ASSESSMENT: Please see below. 1. Acute bronchitis 2. COPD 3. Chronic kidney disease stage 4 4. Hypertension PLAN: 1. Anticipate discharge home tomorrow 2. Will start Omnicef 300mg PO BID 3. Discontinue Rocephin 4. Discontinue Solu-Cortef 5. Start Prednisone 10mg BID 6. Flonase two sprays daily to each side. Plan and coordination of the patient's care discussed in the presence of Independent Film Maker and nurse. SCRIBED BY: Marquise LANDON scribed while in presence of service performed by Dr. Garay/Georgette Diaz APRN on 07/04/21 ([id number])
[2021-07-04] MEDS: FLONASE NAS SCH ×2 (09:32→20:03)
[2021-07-04] MEDS: PREDNISONE PO SCH ×2 (09:33→16:58)
[2021-07-04] MEDS: K-DUR PO SCH ×3 (09:33→16:58)
[2021-07-04] MEDS: OMNICEF PO SCH ×2 (09:33→20:02)
[2021-07-04] MEDS: FLOMAX PO SCH (09:33)
[2021-07-04] MEDS: NORVASC PO SCH ×2 (09:33→20:03)
[2021-07-04] MEDS: COZAAR PO SCH (09:33)
[2021-07-04] MEDS: SODIUM BICARBONATE PO SCH ×2 (09:34→20:02)
[2021-07-04] MEDS: CRESTOR PO SCH (20:02)
[2021-07-05 05:58] LABS: BASOPHILS % (AUTO) 0.2 % (0.0-3.0); HEMATOCRIT 41.4 % (42.0-52.0); IMMATURE GRANULOCYTE # (AUTO) 0.1 (0.0-1.0); LYMPHOCYTES # (AUTO) 3.3 K/uL (0.60-3.4); LYMPHOCYTES % (AUTO) 25.4 (10.0-50.0); MEAN CORPUSCULAR HEMOGLOBIN 30.2 pg (27.0-31.0); MEAN CORPUSCULAR HGB CONC 33.8 (31.8-35.4); MEAN CORPUSCULAR VOLUME 89.2 fl (80.0-94.0); MONOCYTES # (AUTO) 0.8 K/uL (0.4-2.0); MONOCYTES % (AUTO) 6.3 (0-10); NEUTROPHILS # (AUTO) 8.7 K/ul (2.0-6.9); NEUTROPHILS % (AUTO) 67.1 % (42.2-75.2); PLATELET COUNT 186 10^3/uL (140-440); RDW COEFFICIENT OF VARIATION 12.9 % (11.6-14.8); RED BLOOD COUNT 4.64 10^6/ul (4.70-6.10); WHITE BLOOD COUNT 12.99 K/ul (4.2-10.2)
[2021-07-05] MEDS: PROTONIX PO SCH (06:01)
[2021-07-05 06:09] LABS: ALANINE AMINOTRANSFERASE 25.3 U/L (0-50); ALBUMIN 4.3 g/dL (3.5-5.0); ALKALINE PHOSPHATASE 67.2 U/L (56-119); ASPARTATE AMINO TRANSFERASE 21.8 U/L (17-59); BILIRUBIN,TOTAL 0.67 mg/dL (0.2-1.3); BLOOD UREA NITROGEN 27.2 mg/dL (9-20); CALCIUM 9.22 mg/dL (8.4-10.2); CARBON DIOXIDE 25.5 mmol/L (22-30.0); CHLORIDE 108.4 mmol/L (98-107); CREATININE 1.79 mg/dL (0.60-1.10); GLUCOSE 126.7 mg/dL (74-106); POTASSIUM 4.3 mmol/L (3.5-5.1); SODIUM 139.7 mmol/L (134.5-145); TOTAL PROTEIN 7.49 g/dL (6.3-8.2)
--- NOTE | 2021-07-05 09:15 | PCM.PROG ---
Attending Provider: ATTENDING PROVIDER: Dr. MIGUEL GARAY DATE OF SERVICE: 07/05/21 SUBJECTIVE: This 80 year old AA/BLACK M was hospitalized 07/01/21 with bronchitis and sinusitis. The patient's condition has improved and is feeling a lot better. REVIEW OF SYSTEMS: CONSTITUTIONAL: No night sweats. No fatigue, malaise, lethargy. No fever or chills. HEENT: Eyes: No visual changes. No eye pain. No eye discharge. ENT: No runny nose. No epistaxis. No sinus pain. No odynophagia. No congestion. RESPIRATORY: No cough, no congestion. No hemoptysis. No shortness of breath. CARDIOVASCULAR: No angina symptoms. No CHF symptoms. No atypical chest pain for CAD. No palpitations. No orthopnea.. GASTROINTESTINAL: No abdominal pain. No nausea or vomiting. No diarrhea or constipation. No hematemesis. No hematochezia. GENITOURINARY: No urgency. No frequency. No dysuria. No hematuria. No o bstructive symptoms. No discharge. No pain. No significant abnormal bleeding. MUSCULOSKELETAL: No musculoskeletal pain; no joint swelling. NEUROLOGICAL: Awake, alert, oriented to time, place and person. No headache. No neck pain. No syncope. No seizures. No dizziness. PSYCHIATRIC: Not anxious. No depression. No suicidal thoughts. No homicidal thoughts. SKIN: No rash. No lesions. No wounds. ENDOCRINE: No unexplained weight loss. No weight gain. HEMATOLOGIC/LYMPHATIC: No anemia. No purpura. No petechiae. No prolonged or excessive bleeding. No palpable lymph nodes. PHYSICAL EXAMINATION: GENERAL: The patient is awake, alert and oriented, sitting in bed in no distres s. VITAL SIGNS: Temperature 97.1 F, Pulse 70, Respiratory Rate 18, BP 153/83, Pulse Ox 98% HEENT: Head normocephalic, atraumatic. Eyes: Extraocular muscles are intact. Pupils are equal, round and reactive to light and accommodation. Ears: No lesions. Nose appeared normal. Throat: No exudate or erythema. NECK: Supple. No JVD, no carotid bruit. No lymphadenopathy or thyromegaly. LUNGS: Clear to auscultation. Percussion note normal. Chest symmetrical. HEART: S1, S2, no S3. No murmurs. No cyanosis or clubbing. No ascites. Pulses: Dorsalis pedis and posterior tibial pulses +1 to +2 both sides. ABDOMEN: Soft. Non-tender. Bowel sounds active. No CVA tenderness. No mass felt. EXTREMITIES: No edema. Full range of motion of all extremities, equal. NEUROLOGIC: No focal deficit. Cranial nerves II through XII are grossly intact. No headache, no double vision or headache. SKIN: Warm and dry. Intact. Turgor-normal. LYMPHATIC: No palpable lymph nodes/no lymphedema. MUSCULOSKELETAL: Normal joints with no swelling. Muscle tone is normal. LAB REVIEW: 07/05/21 05:49 07/05/21 05:49 07/05/21 05:49: Sodium 139.7, Potassium 4.30, Chloride 108.4 H, Carbon Dioxide 25.5, Anion Gap 10.10, BUN 27.2 H, Creatinine 1.79 H, Estimated GFR (MDRD) 44.00, BUN/Creatinine Ratio 15.19, Glucose 126.7 H, Calcium 9.22, Total Bilirubin 0.67, AST 21.8, ALT 25.3, Alkaline Phosphatase 67.2, Total Protein 7.49, Albumin 4.30, Globulin 3.19, Albumin/Globulin Ratio 1.34 07/05/21 05:49: WBC 12.99 H, RBC 4.64 L, Hgb 14.0, Hct 41.4 L, MCV 89.2, MCH 30.2, MCHC 33.8, RDW Coeff of [place]man 12.9, Plt Count 186, Immature Gran % (Auto) 1.0, Neut % (Auto) 67.1, Lymph % (Auto) 25.4, [place] % (Auto) 6.3, Eos % (Auto) 0.0, Baso % (Auto) 0.2, Neut # (Auto) 8.7 H, Lymph # (Auto) 3.3, [place] # (Auto) 0.8, Eos # (Auto) 0.0, Baso # (Auto) 0.0, Immature Gran # (Auto) 0.1 07/04/21 14:45: SARS-CoV-2 Ag (Rapid) Negative ASSESSMENT: Please see below. 1. Bronchitis, resolved 2. Sinusitis, resolved 3. Dehydration, resolved 4. COVID negative. PLAN: 1. The patient lives with daughter and her two kids and they are all positive f or COVID. Their quarantine time is over tomorrow and we will discharge him tomorrow. 2. Evaluate cardiovascular status by echo tomorrow 3. No signs of CHF or coronary artery disease 4. Start the patient on Lexapro 10mg daily. The patient has showed sign of depression after the of his a few months ago. No suicidal or homicidal tendencies. Side effects of Lexapro were discussed with the patient. Plan and coordination of the patient's care discussed in the presence of Ic Designer Standard Cells and nurse. SCRIBED BY: FELICITY OCASIO Plastic Welding Machine Operator scribed while in presence of service performed by Dr. MIGUEL GARAY on 07/05/21 ([id number])
[2021-07-05] MEDS: FLOMAX PO SCH (10:01)
[2021-07-05] MEDS: K-DUR PO SCH ×3 (10:01→16:51)
[2021-07-05] MEDS: COZAAR PO SCH (10:01)
[2021-07-05] MEDS: OMNICEF PO SCH ×2 (10:02→20:06)
[2021-07-05] MEDS: NORVASC PO SCH ×2 (10:02→20:06)
[2021-07-05] MEDS: PREDNISONE PO SCH ×2 (10:02→16:51)
[2021-07-05] MEDS: LEXAPRO PO SCH (10:02)
[2021-07-05] MEDS: SODIUM BICARBONATE PO SCH ×2 (10:02→20:06)
[2021-07-05] MEDS: FLONASE NAS SCH ×2 (10:03→20:06)
--- NOTE | 2021-07-05 10:23 | PN ---
DATE OF SERVICE: 07/04/21 SUBJECTIVE: 80 year old male hospitalized with bronchitis and sinusitis, dehydration and weakness. The patient has no symptoms of COVID at present time. REVIEW OF SYSTEMS: CONSTITUTIONAL: No night sweats. Mild fatigue. No fever or chills. HEENT: Eyes: No visual changes. No eye pain. No eye discharge. ENT: No runny nose. No epistaxis. No sinus pain. No sore throat. No odynophagia. No congestion. RESPIRATORY: No cough, no congestion. No hemoptysis. No shortness of breath. Sinus drainage. CARDIOVASCULAR: No angina symptoms. No CHF symptoms. No atypical chest pain for CAD. No palpitations. No PND. No orthopnea. GASTROINTESTINAL: No abdominal pain. No nausea or vomiting. No diarrhea or constipation. No hematemesis. No hematochezia. GENITOURINARY: No urgency. No frequency. No dysuria. No hematuria. No obstructive symptoms. No discharge. No pain. No significant abnormal bleeding. MUSCULOSKELETAL: No musculoskeletal pain; no joint swelling. NEUROLOGICAL: Mild headache. No neck pain. No syncope. No seizures. No dizziness. PSYCHIATRIC: Not anxious. No depression. No suicidal thoughts. No homicidal thoughts. SKIN: No rash. No lesions. No wounds. ENDOCRINE: No unexplained weight loss. No weight gain. HEMATOLOGIC/LYMPHATIC: No anemia. No purpura. No petechiae. No prolonged or excessive bleeding. No palpable lymph nodes. The patient was seen and examined with Nurse Practitioner and his condition is improved. The patient is strongly advised to be up and about. The patient has sedentary lifestyle and he is advised to walk at least 2 miles a day. He seems to be somewhat mildly depressed. Continue telemetry and cardiovascular seems to be stable. TIME SPENT: More than 30 minutes. Plan and coordination of the patient's care discussed in the presence of nurse. DONNA
--- NOTE | 2021-07-05 10:28 | PN ---
DATE OF SERVICE: 07/03/21 SUBJECTIVE: 80 year old black male was hospitalized with acute bronchitis, sinusitis, fatigue and tired feeling. The patient's COVID was negative. The patient has improved with steroids, antibiotics and hydration. REVIEW OF SYSTEMS: CONSTITUTIONAL: No night sweats. Still feels fatigued. No fever or chills. HEENT: Eyes: No visual changes. No eye pain. No eye discharge. ENT: No runny nose. No epistaxis. No sinus pain. No sore throat. No odynophagia. No congestion. RESPIRATORY: No cough, no congestion. No hemoptysis. No shortness of breath. Sinus drainage is much less. CARDIOVASCULAR: No angina symptoms. No CHF symptoms. No atypical chest pain for CAD. No palpitations. No PND. No orthopnea. GASTROINTESTINAL: No abdominal pain. No nausea or vomiting. No diarrhea or constipation. No hematemesis. No hematochezia. GENITOURINARY: No urgency. No frequency. No dysuria. No hematuria. No obstructive symptoms. No discharge. No pain. No significant abnormal bleeding. MUSCULOSKELETAL: No musculoskeletal pain; no joint swelling. NEUROLOGICAL: Headache. No neck pain. No syncope. No seizures. No dizziness. PSYCHIATRIC: Not anxious. No depression. No suicidal thoughts. No homicidal thoughts. SKIN: No rash. No lesions. No wounds. ENDOCRINE: No unexplained weight loss. No weight gain. HEMATOLOGIC/LYMPHATIC: No anemia. No purpura. No petechiae. No prolonged or excessive bleeding. No palpable lymph nodes. PHYSICAL EXAMINATION: VITAL SIGNS: Temperature 97.8, pulse 60, respiratory rate 18, blood pressure 180/90 and pulse ox 99% on room air. HEENT: Head normocephalic, atraumatic. Eyes: Extraocular muscles are intact. Pupils are equal, round and reactive to light and accommodation. Ears: No lesions. Nose appeared normal. Throat: No exudate or erythema. NECK: Supple. No JVD, no carotid bruit. No lymphadenopathy or thyromegaly. LUNGS:Decreased breath sounds but clear to auscultation. Percussion note normal. Chest symmetrical. HEART: S1, S2, no S3. No murmurs. No cyanosis or clubbing. No ascites. Pulses: Dorsalis pedis and posterior tibial pulses +1 to +2 bilaterally. ABDOMEN: Soft. Nontender. Bowel sounds active. No CVA tenderness. No mass felt. EXTREMITIES: No edema. Full range of motion of all extremities, equal. NEUROLOGIC: No focal deficit. Cranial nerves II through XII are grossly intact. No headache. No double vision. SKIN: Not dry. Intact. Turgor - normal-good. LYMPHATIC: No palpable lymph nodes/no lymphedema. MUSCULOSKELETAL: Normal joints with no swelling. Muscle tone is normal. LABS: hgb 12.9, hct 38, WBC 10,000 normal differential, creatinine 1.7, BUN 23 ASSESSMENT: 1. Acute bronchitis/ sinusitis seems to be under control PLAN: 1. The patient's daughter and two kids that live with him now has been reported to be COVID positive. The patient has took take test for COVID in last one week. They were both negative. The patient's have any active symptoms. He is afebrile. Sinusitis is resolving. COVID test on admission 07/01/21 was negative. 2. We will do rapid antigen tomorrow 3. Continue to treat patient with steroids, antibiotics. TIME SPENT: More than 30 minutes. Plan and coordination of the patient's care discussed in the presence of nurse. DONNA
--- NOTE | 2021-07-05 14:50 | PN ---
DATE OF SERVICE: 07/01/21 SUBJECTIVE: The patient was seen and examined with the Nurse Practitioner. The patient has been feeling tired, dizzy and continued coughing. Recent COVID 19 test was negative but he will undergo COVID 19 test again before hospitalization. Continue to have sinus drainage, yellow. Barely able to walk. He lives by himself with help of daughter. He is going to be hospitalized on routine telemetry orders. He is going to be on IV fluids, Rocephin and Solu-Cortef is going to be started along with oxygen supplements. CONDITION: Stable. TIME SPENT: More than 30 minutes. Plan and coordination of the patient's care discussed in the presence of nurse. DONNA
[2021-07-05] MEDS: CRESTOR PO SCH (20:06)
[2021-07-06 05:13] LABS: BASOPHILS % (AUTO) 0.2 % (0.0-3.0); HEMOGLOBIN 13.6 g/dl (14.0-18.0); IMMATURE GRANULOCYTE # (AUTO) 0.1 (0.0-1.0); IMMATURE GRANULOCYTE % (AUTO) 1.1 % (0.0-5.0); LYMPHOCYTES # (AUTO) 2.2 K/uL (0.60-3.4); LYMPHOCYTES % (AUTO) 22.9 (10.0-50.0); MEAN CORPUSCULAR HEMOGLOBIN 30.4 pg (27.0-31.0); MEAN CORPUSCULAR VOLUME 89.3 fl (80.0-94.0); MONOCYTES # (AUTO) 0.6 K/uL (0.4-2.0); MONOCYTES % (AUTO) 6.4 (0-10); NEUTROPHILS # (AUTO) 6.6 K/ul (2.0-6.9); NEUTROPHILS % (AUTO) 69.4 % (42.2-75.2); PLATELET COUNT 181 10^3/uL (140-440); RED BLOOD COUNT 4.48 10^6/ul (4.70-6.10); WHITE BLOOD COUNT 9.48 K/ul (4.2-10.2)
[2021-07-06] MEDS: PROTONIX PO SCH (05:35)
[2021-07-06 05:38] LABS: ALANINE AMINOTRANSFERASE 30.5 U/L (0-50); ALBUMIN 4.14 g/dL (3.5-5.0); ALKALINE PHOSPHATASE 62.5 U/L (56-119); ASPARTATE AMINO TRANSFERASE 27.6 U/L (17-59); BILIRUBIN,TOTAL 0.94 mg/dL (0.2-1.3); BLOOD UREA NITROGEN 26.9 mg/dL (9-20); CARBON DIOXIDE 21.3 mmol/L (22-30.0); CHLORIDE 109.3 mmol/L (98-107); CREATININE 1.7 mg/dL (0.60-1.10); GLUCOSE 165.4 mg/dL (74-106); POTASSIUM 4.32 mmol/L (3.5-5.1); SODIUM 137.3 mmol/L (134.5-145); TOTAL PROTEIN 7.09 g/dL (6.3-8.2)
[2021-07-06] MEDS: DRISDOL PO SCH (09:02)
[2021-07-06] MEDS: OMNICEF PO SCH ×2 (09:03→20:17)
[2021-07-06] MEDS: COZAAR PO SCH (09:03)
[2021-07-06] MEDS: FLOMAX PO SCH (09:03)
[2021-07-06] MEDS: LEXAPRO PO SCH (09:03)
[2021-07-06] MEDS: NORVASC PO SCH ×2 (09:03→20:17)
[2021-07-06] MEDS: SODIUM BICARBONATE PO SCH ×2 (09:03→20:17)
[2021-07-06] MEDS: PREDNISONE PO SCH ×2 (09:03→17:18)
[2021-07-06] MEDS: FLONASE NAS SCH ×2 (09:04→20:18)
[2021-07-06] MEDS: K-DUR PO SCH ×2 (12:41→12:44)
[2021-07-06] MEDS: CRESTOR PO SCH (20:17)
[2021-07-07 05:20] LABS: BASOPHILS % (AUTO) 0.1 % (0.0-3.0); HEMATOCRIT 40.4 % (42.0-52.0); HEMOGLOBIN 13.6 g/dl (14.0-18.0); IMMATURE GRANULOCYTE # (AUTO) 0.1 (0.0-1.0); IMMATURE GRANULOCYTE % (AUTO) 0.5 % (0.0-5.0); LYMPHOCYTES # (AUTO) 2.2 K/uL (0.60-3.4); LYMPHOCYTES % (AUTO) 24.1 (10.0-50.0); MEAN CORPUSCULAR HGB CONC 33.7 (31.8-35.4); MEAN CORPUSCULAR VOLUME 89.2 fl (80.0-94.0); MONOCYTES # (AUTO) 0.7 K/uL (0.4-2.0); MONOCYTES % (AUTO) 7.4 (0-10); NEUTROPHILS # (AUTO) 6.2 K/ul (2.0-6.9); NEUTROPHILS % (AUTO) 67.9 % (42.2-75.2); PLATELET COUNT 176 10^3/uL (140-440); RDW COEFFICIENT OF VARIATION 13.1 % (11.6-14.8); RED BLOOD COUNT 4.53 10^6/ul (4.70-6.10); WHITE BLOOD COUNT 9.17 K/ul (4.2-10.2)
[2021-07-07 05:34] LABS: ALANINE AMINOTRANSFERASE 33.4 U/L (0-50); ALBUMIN 4.2 g/dL (3.5-5.0); ALKALINE PHOSPHATASE 59.5 U/L (56-119); ASPARTATE AMINO TRANSFERASE 24.9 U/L (17-59); BILIRUBIN,TOTAL 0.93 mg/dL (0.2-1.3); BLOOD UREA NITROGEN 28.8 mg/dL (9-20); CARBON DIOXIDE 23.1 mmol/L (22-30.0); CREATININE 1.84 mg/dL (0.60-1.10); GLUCOSE 135.1 mg/dL (74-106); POTASSIUM 4.54 mmol/L (3.5-5.1); SODIUM 138.5 mmol/L (134.5-145); TOTAL PROTEIN 7.01 g/dL (6.3-8.2)
[2021-07-07] MEDS: PROTONIX PO SCH (05:46)
[2021-07-07] MEDS ORDERED: K-DUR PO SCH (08:30)
[2021-07-07] MEDS: NORVASC PO SCH ×2 (08:38→20:51)
[2021-07-07] MEDS: LEXAPRO PO SCH (08:38)
[2021-07-07] MEDS: FLOMAX PO SCH (08:38)
[2021-07-07] MEDS: COZAAR PO SCH (08:38)
[2021-07-07] MEDS: FLONASE NAS SCH ×2 (08:39→20:51)
[2021-07-07] MEDS: PREDNISONE PO SCH ×2 (08:39→17:19)
[2021-07-07] MEDS: SODIUM BICARBONATE PO SCH ×2 (08:39→20:50)
[2021-07-07] MEDS: CRESTOR PO SCH (20:50)
[2021-07-08 05:12] VITALS: BP 153/82; TEMP 98
[2021-07-08 05:36] LABS: BASOPHILS % (AUTO) 0.1 % (0.0-3.0); HEMOGLOBIN 14.2 g/dl (14.0-18.0); IMMATURE GRANULOCYTE # (AUTO) 0.1 (0.0-1.0); IMMATURE GRANULOCYTE % (AUTO) 0.6 % (0.0-5.0); LYMPHOCYTES # (AUTO) 2.8 K/uL (0.60-3.4); LYMPHOCYTES % (AUTO) 25.6 (10.0-50.0); MEAN CORPUSCULAR HEMOGLOBIN 30.3 pg (27.0-31.0); MEAN CORPUSCULAR HGB CONC 33.8 (31.8-35.4); MEAN CORPUSCULAR VOLUME 89.7 fl (80.0-94.0); MONOCYTES # (AUTO) 0.7 K/uL (0.4-2.0); NEUTROPHILS # (AUTO) 7.3 K/ul (2.0-6.9); NEUTROPHILS % (AUTO) 67.7 % (42.2-75.2); PLATELET COUNT 171 10^3/uL (140-440); RDW COEFFICIENT OF VARIATION 13.1 % (11.6-14.8); RED BLOOD COUNT 4.68 10^6/ul (4.70-6.10); WHITE BLOOD COUNT 10.82 K/ul (4.2-10.2)
[2021-07-08] MEDS: PROTONIX PO SCH (05:45)
[2021-07-08 05:50] LABS: ALANINE AMINOTRANSFERASE 37.5 U/L (0-50); ALBUMIN 4.37 g/dL (3.5-5.0); ALKALINE PHOSPHATASE 66.7 U/L (56-119); ASPARTATE AMINO TRANSFERASE 25.7 U/L (17-59); BILIRUBIN,TOTAL 0.99 mg/dL (0.2-1.3); BLOOD UREA NITROGEN 28.4 mg/dL (9-20); CALCIUM 9.08 mg/dL (8.4-10.2); CARBON DIOXIDE 19.8 mmol/L (22-30.0); CHLORIDE 110.2 mmol/L (98-107); CREATININE 1.9 mg/dL (0.60-1.10); GLUCOSE 130.8 mg/dL (74-106); POTASSIUM 4.5 mmol/L (3.5-5.1); TOTAL PROTEIN 7.47 g/dL (6.3-8.2)
[2021-07-08] MEDS: LEXAPRO PO SCH (08:05)
[2021-07-08] MEDS: COZAAR PO SCH (08:05)
[2021-07-08] MEDS: NORVASC PO SCH (08:05)
[2021-07-08] MEDS: SODIUM BICARBONATE PO SCH (08:05)
[2021-07-08] MEDS: PREDNISONE PO SCH (08:05)
[2021-07-08] MEDS: FLOMAX PO SCH (08:05)
[2021-07-08] MEDS: FLONASE NAS SCH (08:07)
--- NOTE | 2021-07-08 10:35 | PCM.PROG ---
Attending Provider: ATTENDING PROVIDER: Dr. MIGUEL BLACKWELL This patient is seen with Georgette Diaz, Nurse Practitioner. DATE OF SERVICE: 07/08/21 SUBJECTIVE: This 80 year old AA/BLACK M was hospitalized 07/01/21. Sinus pressure better, cough improved. Labs are stable. Sees Singing Waiter Or Waitress for renal failure. The patient will be discharged today. REVIEW OF SYSTEMS: CONSTITUTIONAL: No night sweats. No fatigue, malaise, lethargy. No fever or chills. HEENT: Eyes: No visual changes. No eye pain. No eye discharge. Sinus pressure. ENT: No runny nose. No epistaxis. No sinus pain. No odynophagia. No congestion. RESPIRATORY: No cough, no congestion. No hemoptysis. No shortness of breath. CARDIOVASCULAR: No angina symptoms. No CHF symptoms. No atypical chest pain for CAD. No palpitations. No orthopnea.. GASTROINTESTINAL: No abdominal pain. No nausea or vomiting. No diarrhea or cons tipation. No hematemesis. No hematochezia. GENITOURINARY: No urgency. No frequency. No dysuria. No hematuria. No obstructive symptoms. No discharge. No pain. No significant abnormal bleeding. MUSCULOSKELETAL: No musculoskeletal pain; no joint swelling. NEUROLOGICAL: Awake, alert, oriented to time, place and person. Headache. No neck pain. No syncope. No seizures. No dizziness. PSYCHIATRIC: Not anxious. No depression. No suicidal thoughts. No homicidal thoughts. SKIN: No rash. No lesions. No wounds. ENDOCRINE: No unexplained weight loss. No weight gain. HEMATOLOGIC/LYMPHATIC: No anemia. No purpura. No petechiae. No prolonged or excessive bleeding. No palpable lymph nodes. PHYSICAL EXAMINATION: GENERAL: The patient is awake, alert and oriented, sitting in bed in no distress. VITAL SIGNS: Temperature 98.0 F, Pulse 65, Respiratory Rate 16, BP 153/82, Pulse Ox 97% HEENT: Head normocephalic, atraumatic. Eyes: Extraocular muscles are intact. Pupils are equal, round and reactive to light and accommodation. Ears: No lesions. Nose appeared normal. Throat: No exudate or erythema. NECK: Supple. No JVD, no carotid bruit. No lymphadenopathy or thyromegaly. LUNGS: Diminished breath sounds. Clear to auscultation. Percussion note normal. Chest symmetrical. HEART: S1, S2, no S3. No murmurs. No cyanosis or clubbing. No ascites. Pulses: Dorsalis pedis and posterior tibial pulses +1 to +2 both sides. ABDOMEN: Soft. Non-tender. Bowel sounds active. No CVA tenderness. No mass felt. EXTREMITIES: No edema. Full range of motion of all extremities, equal. NEUROLOGIC: No focal deficit. Cranial nerves II through XII are grossly intact. No headache. No double vision. SKIN: Not dry. Intact. Turgor-normal. LYMPHATIC: No palpable lymph nodes/no lymphedema. MUSCULOSKELETAL: Normal joints with no swelling. Muscle tone is normal. LAB REVIEW: 07/08/21 04:56 07/08/21 04:56 07/08/21 04:56: Sodium 139.0, Potassium 4.50, Chloride 110.2 H, Carbon Dioxide 19.8 L, Anion Gap 13.50, BUN 28.4 H, Creatinine 1.90 H, Estimated GFR (MDRD) 41.00, BUN/Creatinine Ratio 14.94, Glucose 130.8 H, Calcium 9.08, Total Bilirub in 0.99, AST 25.7, ALT 37.5, Alkaline Phosphatase 66.7, Total Protein 7.47, Albumin 4.37, Globulin 3.10, Albumin/Globulin Ratio 1.40 07/08/21 04:56: WBC 10.82 H, RBC 4.68 L, Hgb 14.2, Hct 42.0, MCV 89.7, MCH 30.3, MCHC 33.8, RDW Coeff of [place] 13.1, Plt Count 171, Immature Gran % (Auto) 0.6, Neut % (Auto) 67.7, Lymph % (Auto) 25.6, [place] % (Auto) 6.0, Eos % (Auto) 0.0, Baso % (Auto) 0.1, Neut # (Auto) 7.3 H, Lymph # (Auto) 2.8, [place] # (Auto) 0.7, Eos # (Auto) 0.0, Baso # (Auto) 0.0, Immature Gran # (Auto) 0.1 ASSESSMENT: Please see below. 1.Acute bronchitis, improved 2. Acute on chronic sinusitis 3. COPD 4. Chronic kidney disease stage 3-4, Sees Dr. Comer 5. Hypertension PLAN: 1. Discontinue home 2. Prednisone 10mg daily for 5 days 3. Continue Flonase 4. Followup with Dr. Nahomi Davison. See us in the office next week. d Plan and coordination of the patient's care discussed in the presence of Can Sealer and nurse. SCRIBED BY: FELICITY OCASIO Hop Separator scribed while in presence of service performed by Dr. Blackwell/Georgette Diaz APRN on 07/08/21 ([id number])
--- NOTE | 2021-07-08 13:01 | PN ---
DATE OF SERVICE: 07/02/21 SUBJECTIVE: 80 year old white male hospitalized with acute bronchitis, acute sinusitis and fatigue and tired feeling. The patient's condition has improved. His hypokalemia seems to have resolved. REVIEW OF SYSTEMS: CONSTITUTIONAL: No night sweats. Tired and weak, a little bit more energy. No fever or chills. HEENT: Eyes: No visual changes. No eye pain. No eye discharge. ENT: No runny nose. No epistaxis. Sinus drainage still persists. No sore throat. No odynophagia. No congestion. RESPIRATORY: No cough, no congestion. No hemoptysis. No shortness of breath. Bronchitis symptoms were COVID negative. CARDIOVASCULAR: No angina symptoms. No CHF symptoms. No atypical chest pain for CAD. No palpitations. No PND. No orthopnea. GASTROINTESTINAL: No abdominal pain. No nausea or vomiting. No diarrhea or constipation. No hematemesis. No hematochezia. GENITOURINARY: No urgency. No frequency. No dysuria. No hematuria. No obstructive symptoms. No discharge. No pain. No significant abnormal bleeding. MUSCULOSKELETAL: No musculoskeletal pain; no joint swelling. NEUROLOGICAL: No headache. No neck pain. No syncope. No seizures. No dizziness. PSYCHIATRIC: Not anxious. No depression. No suicidal thoughts. No homicidal thoughts. SKIN: No rash. No lesions. No wounds. ENDOCRINE: No unexplained weight loss. No weight gain. HEMATOLOGIC/LYMPHATIC: No anemia. No purpura. No petechiae. No prolonged or excessive bleeding. No palpable lymph nodes. PHYSICAL EXAMINATION: VITAL SIGNS: Temperature 98, pulse 75, respiratory rate 18, blood pressure 150/82 and pulse ox 98%. HEENT: Head normocephalic, atraumatic. Eyes: Extraocular muscles are intact. Pupils are equal, round and reactive to light and accommodation. Ears: No lesions. Nose appeared normal. Throat: No exudate or erythema. NECK: Supple. No JVD, no carotid bruit. No lymphadenopathy or thyromegaly. LUNGS: Decreased breath sounds but clear to auscultation. Percussion note normal. Chest symmetrical. HEART: S1, S2, no S3. No murmurs. No cyanosis or clubbing. No ascites. Pulses: Dorsalis pedis and posterior tibial pulses +1 to +2 bilaterally. ABDOMEN: Soft. Nontender. Bowel sounds active. No CVA tenderness. No mass felt. EXTREMITIES: No edema. Full range of motion of all extremities, equal. NEUROLOGIC: No focal deficit. Cranial nerves II through XII are grossly intact. No headache. No double vision. SKIN: Not dry. Intact. Turgor - normal. LYMPHATIC: No palpable lymph nodes/no lymphedema. MUSCULOSKELETAL: Normal joints with no swelling. Muscle tone is normal. ASSESSMENT: 1. Acute bronchitis/ sinusitis stable and improving some 2. Cardiovascular status, stable 3. Hypokalemia resolved PLAN: 1. Continue steroids, antibiotics 2. Encourage the patient to eat 3. Up and about TIME SPENT: More than 30 minutes. Plan and coordination of the patient's care discussed in the presence of nurse. DONNA
--- NOTE | 2021-07-12 12:59 | PN ---
DATE OF SERVICE: 07/06/21 SUBJECTIVE: 80 year black male hospitalized with acute bronchitis, COPD exacerbation and sinusitis. He is COVID negative. REVIEW OF SYSTEMS: CONSTITUTIONAL: No night sweats. No fatigue, malaise, lethargy. No fever or chills. HEENT: Eyes: No visual changes. No eye pain. No eye discharge. ENT: No runny nose. No epistaxis. No sinus pain. No sore throat. No odynophagia. No congestion. RESPIRATORY: No cough, no congestion. No hemoptysis. No shortness of breath. CARDIOVASCULAR: No angina symptoms. No CHF symptoms. No atypical chest pain for CAD. No palpitations. No PND. No orthopnea. GASTROINTESTINAL: No abdominal pain. No nausea or vomiting. No diarrhea or constipation. No hematemesis. No hematochezia. GENITOURINARY: No urgency. No frequency. No dysuria. No hematuria. No obstructive symptoms. No discharge. No pain. No significant abnormal bleeding. MUSCULOSKELETAL: No musculoskeletal pain; no joint swelling. NEUROLOGICAL: No headache. No neck pain. No syncope. No seizures. No dizziness. PSYCHIATRIC: Not anxious. No depression. No suicidal thoughts. No homicidal thoughts. SKIN: No rash. No lesions. No wounds. ENDOCRINE: No unexplained weight loss. No weight gain. HEMATOLOGIC/LYMPHATIC: No anemia. No purpura. No petechiae. No prolonged or excessive bleeding. No palpable lymph nodes. PHYSICAL EXAMINATION: GENERAL: The patient is oriented to time, place and person. VITAL SIGNS: Temperature 97.6, pulse 67, respiratory rate 18, blood pressure 155/87 and pulse ox 98%. HEENT: Head normocephalic, atraumatic. Eyes: Extraocular muscles are intact. Pupils are equal, round and reactive to light and accommodation. Ears: No lesions. Nose appeared normal. Throat: No exudate or erythema. NECK: Supple. No JVD, no carotid bruit. No lymphadenopathy or thyromegaly. LUNGS: Clear to auscultation. Percussion note normal. Chest symmetrical. HEART: S1, S2, no S3. No murmurs. No cyanosis or clubbing. No ascites. Pulses: Dorsalis pedis and posterior tibial pulses +1 to +2 bilaterally. ABDOMEN: Soft. Nontender. Bowel sounds active. No CVA tenderness. No mass felt. EXTREMITIES: No edema. Full range of motion of all extremities, equal. NEUROLOGIC: No focal deficit. Cranial nerves II through XII are grossly intact. No headache. No double vision. SKIN: Not dry. Intact. Turgor - normal. LYMPHATIC: No palpable lymph nodes/no lymphedema. MUSCULOSKELETAL: Normal joints with no swelling. Muscle tone is normal. LABS: Hgb 13.6, hct 40, WBC 9,400 normal differential, creatinine 1.7, BUN 26, potassium 4.3. ASSESSMENT: 1. Acute bronchitis with COPD has improved. 2. Sinusitis seems to have resolved 3. Fatigue has resolved 4. COVID negative. PLAN: 1. The patient's daughter and two kids that live with them are all positive. They will be out of quarantine officially tomorrow so we will discharge the patient maybe day after tomorrow. The patient dependents on them for care. The patient is a . CONDITION: Stable. TIME SPENT: More than 30 minutes. Plan and coordination of the patient's care discussed in the presence of nurse. DONNA
--- NOTE | 2021-07-15 11:07 | PN ---
DATE OF SERVICE: 07/07/21 SUBJECTIVE: 80 year old black male hospitalized with acute bronchitis/sinusitis and COPD exacerbation. The patient's condition has steadily improved. He is feeling better, still has some sinusitis type problem which has continued so somewhat short of breath on minimal exertion. REVIEW OF SYSTEMS: CONSTITUTIONAL: No night sweats. No fatigue, malaise, lethargy. No fever or chills. HEENT: Eyes: No visual changes. No eye pain. No eye discharge. ENT: No runny nose. No epistaxis. No sinus pain. No sore throat. No odynophagia. No congestion. RESPIRATORY: Mild cough, no congestion. No hemoptysis. Shortness of breath with minimal exertion. Sinus drainage. CARDIOVASCULAR: No angina symptoms. No CHF symptoms. No atypical chest pain for CAD. No palpitations. No PND. No orthopnea. GASTROINTESTINAL: No abdominal pain. No nausea or vomiting. No diarrhea or constipation. No hematemesis. No hematochezia. GENITOURINARY: No urgency. No frequency. No dysuria. No hematuria. No obstructive symptoms. No discharge. No pain. No significant abnormal bleeding. MUSCULOSKELETAL: No musculoskeletal pain; no joint swelling. NEUROLOGICAL: No headache. No neck pain. No syncope. No seizures. No dizziness. PSYCHIATRIC: Not anxious. No depression. No suicidal thoughts. No homicidal thoughts. SKIN: No rash. No lesions. No wounds. ENDOCRINE: No unexplained weight loss. No weight gain. HEMATOLOGIC/LYMPHATIC: No anemia. No purpura. No petechiae. No prolonged or excessive bleeding. No palpable lymph nodes. PHYSICAL EXAMINATION: VITAL SIGNS: Temperature 97.2, pulse 70, respiratory rate 18, blood pressure 150/90 and pulse ox 98%. HEENT: Head normocephalic, atraumatic. Eyes: Extraocular muscles are intact. Pupils are equal, round and reactive to light and accommodation. Ears: No lesions. Nose appeared normal. Throat: No exudate or erythema. NECK: Supple. No JVD, no carotid bruit. No lymphadenopathy or thyromegaly. LUNGS: Decreased breath sounds but clear to auscultation. Percussion note normal. Chest symmetrical. HEART: S1, S2, no S3. No murmurs. No cyanosis or clubbing. No ascites. Pulses: Dorsalis pedis and posterior tibial pulses +1 to +2 bilaterally. ABDOMEN: Soft. Nontender. Bowel sounds active. No CVA tenderness. No mass felt. EXTREMITIES: No edema. Full range of motion of all extremities, equal. NEUROLOGIC: No focal deficit. Cranial nerves II through XII are grossly intact. No headache. No double vision. SKIN: Not dry. Intact. Turgor - normal. LYMPHATIC: No palpable lymph nodes/no lymphedema. MUSCULOSKELETAL: Normal joints with no swelling. Muscle tone is normal. LABS: Hgb 13.6, hct 40, WBC 9,000 normal differential, creatinine 1.8, BUN 28, potassium 4.5 ASSESSMENT: 1. COPD exacerbation with bronchitis seems to be resolving along with sinusitis. The patient is getting his strength back. Mood is somewhat better last couple of days he has been saying that he is feeling some better which is kind of unusual. PLAN: 1. Continue Lexapro which seems to be working well for him 2. The patient's rapid antigen for COVID was negative in the middle of stay. The patient had COVID test on admission which was negative. 3. The patient is going to be discharged home. Daughter and two kids living with patient are COVID positive and their quarantine was over yesterday. We discharge the patient home on antibiotics. Advised to follow strict quarantine when he goes home at least for 5 days. CONDITION: Stable. TIME SPENT: More than 30 minutes. Plan and coordination of the patient's care discussed in the presence of nurse. DONNA
--- NOTE | 2021-07-15 11:17 | PN ---
DATE OF SERVICE: 07/08/21 SUBJECTIVE: 80 year old black male hospitalized with exacerbation of COPD with acute bronchitis. The patient's condition seems to have improved. He is feeling better. Lexapro seems to be working. Kidney functions are stable but abnormal. Lungs are clear. Cardiovascular status is stable. The patient is going to be discharged on steroids, antibiotics. The patient is strongly advised to walk everyday. He has sedentary lifestyle, advised to lose at least 15-20 pounds. Counseling for weight loss done. The patient's condition at the time of discharge is stable. TIME SPENT: More than 30 minutes. Plan and coordination of the patient's care discussed in the presence of nurse. DONNA
--- NOTE | 2021-07-15 11:18 | PN ---
07/01/21: Level 5 07/02/21: Intermediate 07/03/21: Intermediate 07/04/21: Intermediate 07/05/21: Intermediate 07/06/21: Intermediate 07/07/21: Intermediate 07/08/21: D as in discharge MTDD
--- NOTE | 2021-07-23 13:17 | DS ---
DATE OF SERVICE: 07/08/21 FINAL DIAGNOSIS: 1. Acute pneumonitis 2. COPD 3. Renal Azotemia 4. Chronic kidney disease stage 4 5. COPD 6. Diabetes mellitus type II 7. Anxiety 8. Chronic sinusitis DISCHARGE INSTRUCTIONS: Discharge home today. Continue all home medications. Followup with Dr. Blackwell/Georgette Diaz APRN/Lydia Meredith APRN on July 16 at 10:45am MEDICATIONS AT DISCHARGE: Amlodipine 5mg PO BID Crestor 10mg PO BEDTIME Losartan 100mg PO daily Vitamin D2 50,000 unit PO weekly Flomax 0.4mg PO daily Sodium bicarbonate 650mg PO BID Marsha 180mg PO Q 8 hours PRN Protonix 40mg PO daily NEW PRESCRIPTIONS: Flonase 2 sprays twice a day Lexapro 10mg daily Prednisone 10mg daily DIET INSTRUCTIONS: Continue regular diet. ACTIVITY: Resume activity gradually as tolerated. Take frequent rest periods if needed. HOSPITAL COURSE: 80 year old male who was admitted through the office. He has been seen a few day prior and was complaining of tiredness and dizzy and was coughing. He was started on antibiotics and steroids. He was back for recheck and states that he is still short of breath at time, he has no appetite and he has lost weight. He did have a chest x-ray which was normal. Blood pressure was slightly elevated. He was down about 4 pounds. He did have bilateral rhonchi, dry mucous membranes. He was admitted and placed on IV fluids and started on Rocephin 1 gram IV daily, Solu-Cortef 100mg IV Q 8 hours, CBC and CMP daily and Zithromax 500mg PO daily, Oxygen at 1-2 liters. He was put on sliding scale for insulin. Upon admission his renal function was elevated and he does have chronic kidney disease however slightly up from his baseline. He was restarted on daily Claritin along with daily Flonase which has seemed to help with his sinus pressure. Steroids helped with his shortness of breath. Dr. Blackwell performed an echo which was essentially unchanged from his previous. Blood pressure remained stable. Kidney function improved with IV fluids. He will be sent home on Prednisone 10mg for the next 5 days. He has completed at least 10 days of antibiotics. Blood pressure has been controlled. He sees Dr. Comer for his renal function. He is instructed to followup with him as scheduled. We did start him on Lexapro as I do feel is be suffering from some depression since his and has anxiety. I do believe that this has helped. We will continue this at home as well. We will followup with him in the office next week and he is discharged in stable condition. TIME SPENT: More than 60 minutes. DONNA
== END 2021-07-08 09:05 | disposition home or self-care (01) | DRG 197 ==
LOC: LAB 10:14 → MEDSURG B 14:03
PROVIDERS: ADMIT Internal Medicine; ATTEND Internal Medicine
DX: K57.90 Diverticulosis of intestine, part unspecified, without perforation or abscess without bleeding; I10 Essential (primary) hypertension; J20.9 Acute bronchitis, unspecified; N40.1 Benign prostatic hyperplasia with lower urinary tract symptoms; N20.0 Calculus of kidney; E11.65 Type 2 diabetes mellitus with hyperglycemia; R53.1 Weakness; J84.114 Acute interstitial pneumonitis; M79.7 Fibromyalgia; E78.5 Hyperlipidemia, unspecified; M51.36 Other intervertebral disc degeneration, lumbar region; E86.0 Dehydration; K76.0 Fatty (change of) liver, not elsewhere classified; N26.1 Atrophy of kidney (terminal); N18.4 Chronic kidney disease, stage 4 (severe); K21.9 Gastro-esophageal reflux disease without esophagitis; Z20.822 Contact with and (suspected) exposure to COVID-19; I25.10 Atherosclerotic heart disease of native coronary artery without angina pectoris; J44.1 Chronic obstructive pulmonary disease with (acute) exacerbation